=== PATIENT | female | born 1975 | race American Indian/Alaskan Native ===

== ENCOUNTER 2016-12-06 21:13 | Emergency (ER) | payer OTHER ==
[2016-12-06] MEDS ORDERED: DiphenhydrAMINE 50 mg/ml Inj IVP STA (23:00)
[2016-12-06 23:23] VITALS: TEMP 98.4
--- NOTE | 2016-12-06 23:23 | ED PDOC ---
Arrival/HPI - General Chief Complaint: Pain, Chronic Time Seen by Provider: 12/06/16 21:14 Historian: Patient - History of Present Illness Narrative History of Present Illness (Text): 12/06/16 22:55 41 year old female, whose past medical history includes lupus diagnosed in 2011 , complaining of lupus flare-up. Patient states she takes medication regularly for to control her lupus symptoms but still gets frequent flare-ups, for which she currently following-up with her help aid. Patient states when having a flare-up, she gets a burning/itching sensation to her arms and legs. Patient states her help aid puts her on prednisone and hydroxyzine, which she took tonight without relief. Patient denies any fever, chills, recent trauma/ injury, calf pain, recent travel, chest pain, shortness of breath, or any other complaints. PMD Leobardo Symptom Onset: Gradual Symptom Course: Unchanged Activities at Onset: Light Context: Home Past Medical History - Provider Review Nursing Documentation Reviewed: Yes - Psychiatric Hx Substance Use: No Family/Social History - Physician Review Nursing Documentation Reviewed: Yes Family/Social History: Unknown Family HX Smoking Status: no Hx Alcohol Use: No Hx Substance Use: No Allergies/Home Meds Allergies/Adverse Reactions: Allergies No Known Allergies Allergy (Verified 12/06/16 21:24) Home Medications: Home Meds Medication Instructions Recorded Confirmed Hydroxychloroquine Sulfate 400 mg PO DAILY 12/06/16 12/06/16 [Plaquenil] Prednisolone [Millipred] 5 mg PO 10 12/06/16 12/06/16 hydrALAZINE [hydralazine 25 mg PO DAILY 12/06/16 12/06/16 Hydrochloride] Review of Systems - Physician Review All systems were reviewed & negative as marked: Yes - Review of Systems Constitutional: Normal. absent: Fevers Eyes: Normal ENT: Normal Respiratory: Normal. absent: SOB, Cough Cardiovascular: Normal. absent: Chest Pain Gastrointestinal: Normal. absent: Diarrhea, Nausea, Vomiting Genitourinary Female: Normal. absent: Dysuria, Frequency, Hematuria, Urine Output Changes Musculoskeletal: Other (+burning/itching to arms/legs). absent: Back Pain, Neck Pain Skin: Normal. absent: Rash Neurological: Normal. absent: Headache, Dizziness Endocrine: Normal Hemo/Lymphatic: Normal Psychiatric: Normal Physical Exam Vital Signs Reviewed: Yes Vital Signs Temp Pulse Resp BP Pulse Ox 12/06/16 23:22 98.4 F 76 20 98/64 L 99 12/06/16 21:19 99.0 F 105 H 18 136/88 99 Temperature: Afebrile Blood Pressure: Normal Pulse: Regular Respiratory Rate: Normal Appearance: Positive for: Well-Appearing, Non-Toxic, Comfortable Pain Distress: Mild Mental Status: Positive for: Alert and Oriented X 3 - Systems Exam Head: Present: Atraumatic, Normocephalic Pupils: Present: PERRL Extroacular Muscles: Present: EOMI Conjunctiva: Present: Normal Mouth: Present: Moist Mucous Membranes Neck: Present: Normal Range of Motion Respiratory/Chest: Present: Clear to Auscultation, Good Air Exchange. No: Respiratory Distress, Accessory Muscle Use Cardiovascular: Present: Regular Rate and Rhythm, Normal S1, S2. No: Murmurs Abdomen: Present: Normal Bowel Sounds. No: Tenderness, Distention, Peritoneal Signs Back: Present: Normal Inspection Upper Extremity: Present: Normal Inspection. No: Cyanosis, Edema Lower Extremity: Present: Normal Inspection. No: Edema Neurological: Present: GCS=15, CN II-XII Intact, Speech Normal Skin: Present: Warm, Dry, Normal Color. No: Rashes Psychiatric: Present: Alert, Oriented x 3, Normal Insight, Normal Concentration Medical Decision Making ED Course and Treatment: 12/06/16 22:55 Impression: 41 year old female c/o lupus flare-up/burning sensation to arms and legs. Plan: -- Labs -- Solu-medrol -- Benadryl -- Reassess and disposition Progress Notes: Lab results reviewed and are wnl. On re-evaluation, pt reports improvement of symptoms. Has no additional complaints at this time. Denies calf pain/swelling, CP or SOB. Lab results d/w the pt in great detail. Advised to follow up with primary care physician in 1-2 days without fail. Advised to take medication as prescribed. Return to the emergency room at any time for any new or worsening symptoms. Patient states she fully agrees with and understands discharge instructions. States that she agrees with the plan and disposition. Verbalized and repeated discharge instructions and plan. I have given the patient opportunity to ask any additional questions. - Lab Interpretations Lab Results: 12/06/16 23:15 12/06/16 23:15 Lab Results 12/06/16 23:15: Sodium 138, Potassium 4.3, Chloride 104, Carbon Dioxide 24, Anion Gap 14, BUN 12, Creatinine 0.9, Est GFR ( Amer) > 60, Est GFR (Non- Af Amer) > 60, Random Glucose 99, Calcium 9.4, Total Bilirubin 1.0, AST 41 H, ALT 29, Alkaline Phosphatase 64, Total Creatine Kinase 197, Total Protein 8.3, Albumin 4.4, Globulin 3.8, Albumin/Globulin Ratio 1.2 12/06/16 23:15: WBC 8.5, RBC 4.65, Hgb 13.0, Hct 39.9, MCV 85.8, MCH 28.0, MCHC 32.6, RDW 13.9, Plt Count 271, MPV 11.0, Gran % 88.5 H, Lymph % (Auto) 8.2 L, Amador % (Auto) 3.1, Eos % (Auto) 0.1 L, Baso % (Auto) 0.1, Gran # 7.49 H, Lymph # 0.7 L, Amador # 0.3, Eos # 0.0, Baso # 0.01 I have reviewed the lab results: Yes Interpretation: All labs normal - Medication Orders Current Medication Orders: Discontinued Medications Diphenhydramine HCl (Benadryl) 25 mg IVP STAT STA Stop: 12/06/16 23:01 Last Admin: 12/06/16 23:47 Dose: 25 mg Methylprednisolone (Solu-Medrol) 125 mg IV STAT STA Stop: 12/06/16 23:01 Last Admin: 12/06/16 23:47 Dose: 125 mg - PA / OUTCOMES SPECIALIST / Resident Statement MD/DO has reviewed & agrees with the documentation as recorded. - Scribe Statement The provider has reviewed the documentation as recorded by the Scribkate Cristobal All medical record entries made by the Scribkate were at my direction and personally dictated by me. I have reviewed the chart and agree that the record accurately reflects my personal performance of the history, physical exam, medical decision making, and the department course for this patient. I have also personally directed, reviewed, and agree with the discharge instructions and disposition. Disposition/Present on Arrival - Present on Arrival Any Indicators Present on Arrival: No History of DVT/PE: No History of Uncontrolled Diabetes: No Urinary Catheter: No History of Decub. Ulcer: No History Surgical Site Infection Following: None - Disposition Have Diagnosis and Disposition been Completed?: Yes Diagnosis: Lupus Disposition: HOME/ ROUTINE Disposition Time: 23:45 Patient Plan: Discharge Condition: STABLE Discharge Instructions (ExitCare): Autoimmune Disease (ED) Print Language: YAKUT Additional Instructions: Thank you for letting us take care of you today. You were treated for lupus flare up. The emergency medical care you received today was directed at your acute symptoms. If you were prescribed any medication, please fill it and take as directed. It may take several days for your symptoms to resolve. Return to the Emergency Department if your symptoms worsen, do not improve, or if you have any other problems. Please contact your doctor in 2 days for re-evaluation and follow up Bring any paperwork you were given at discharge with you along with any medications you are taking to your follow up visit. Our treatment cannot replace ongoing medical care by a primary care provider (PCP) outside of the emergency department. Thank you for allowing the [facility] team to be part of your care today. Prescriptions: predniSONE [predniSONE Tab] 40 mg PO DAILY #8 tab Referrals: Davi Booth [Primary Care Provider] - Follow up with primary Forms: [employer] (Syriac), WORK NOTE
[2016-12-06 23:30] LABS: BASO # 0.01 K/mm3 (0.0-2.0); BASO % 0.1 % (0.0-3.0); EOS % 0.1 % (1.5-5.0); GRAN # 7.49 (1.4-6.5); GRAN % 88.5 % (50.0-68.0); HEMATOCRIT 39.9 % (36.0-48.0); LYMPH # 0.7 (1.2-3.4); LYMPH % 8.2 % (22.0-35.0); MEAN CELL VOLUME 85.8 fl (80.0-105.0); MEAN CORPUSCULAR HGB CONC 32.6 g/dl (31.0-37.0); MONO # 0.3 (0.1-0.6); MONO % 3.1 % (1.0-6.0); RED CELL DISTRIBUTION WIDTH 13.9 % (11.5-14.5); WHITE BLOOD COUNT 8.5 10^3/ul (4.5-11.0)
[2016-12-06 23:44] LABS: ALB/GLOB RATIO 1.2 (1.1-1.8); ALKALINE PHOSPHATASE 64 U/L (38-126); ALT/SGPT 29 U/L (7-56); AST/SGOT 41 U/L (14-36); BLOOD UREA NITROGEN 12 mg/dL (7-21); CALCIUM 9.4 mg/dL (8.4-10.5); CARBON DIOXIDE 24 mmol/L (21-33); CHLORIDE 104 mmol/L (98-107); GFR AFRICAN-AMERICAN > 60; GLUCOSE,RANDOM 99 mg/dL (70-110); POTASSIUM 4.3 mmol/L (3.6-5.0); SODIUM 138 mmol/L (132-148); TOTAL PROTEIN 8.3 g/dL (5.8-8.3)
[2016-12-07 00:21] VITALS: BP 116/67; PULSE 74; RESP 16; O2SAT 100
== END 2016-12-07 01:09 | disposition home or self-care (01) ==
LOC: ED 21:13
DX: M32.9 Systemic lupus erythematosus, unspecified (principal)
CPT/HCPCS: 80053; 82550; 85025; 96374; 99283; J1200; J2930

== ENCOUNTER 2016-12-24 19:48 | Observation (INO) | payer OTHER ==
[2016-12-24] MEDS ORDERED: DiphenhydrAMINE 50 mg/ml Inj IVP ONE ×3 (20:13→23:56)
--- NOTE | 2016-12-24 20:36 | ED PDOC ---
Arrival/HPI - General Chief Complaint: Pain, Chronic Time Seen by Provider: 12/24/16 20:00 Historian: Patient - History of Present Illness Narrative History of Present Illness (Text): 41 year old female, whose past medical history includes lupus diagnosed in 2011 , presents to the emergency department with complaints of a lupus flare-up. Patient reports she has a burning/itching sensation to her arms and legs, which is similar to past flare-up episodes. Patient reports taking prednisone without relief of her symptoms. Patient denies any fever, chills, recent trauma/injury, calf pain, recent travel, chest pain, shortness of breath, or any other complaints. PMD Leobardo Past Medical History - Provider Review Nursing Documentation Reviewed: Yes - Travel History Have you recently traveled outside [place] w/in the past 3 mons?: No - Endocrine/Metabolic Hx Systemic Lupus Erythematosus: Yes - Psychiatric Hx Substance Use: No Family/Social History - Physician Review Nursing Documentation Reviewed: Yes Family/Social History: No Known Family HX Smoking Status: Never Smoked Hx Alcohol Use: No Hx Substance Use: No Allergies/Home Meds Allergies/Adverse Reactions: Allergies No Known Allergies Allergy (Verified 12/06/16 21:24) Home Medications: Home Meds Medication Instructions Recorded Confirmed Hydroxychloroquine Sulfate 400 mg PO DAILY 12/06/16 12/24/16 [Plaquenil] Prednisolone [Millipred] 5 mg PO 10 12/06/16 12/24/16 hydrALAZINE [hydralazine 25 mg PO DAILY 12/06/16 12/24/16 Hydrochloride] predniSONE [predniSONE Tab] 40 mg PO PRN PRN 12/24/16 12/24/16 Review of Systems - Physician Review All systems were reviewed & negative as marked: Yes - Review of Systems Constitutional: absent: Fevers Respiratory: absent: SOB Cardiovascular: absent: Chest Pain Gastrointestinal: absent: Abdominal Pain Skin: Pruritis (burning and itching sensation to bilateral arms and legs. ) Neurological: absent: Headache Physical Exam Vital Signs Reviewed: Yes Vital Signs Temp Pulse Resp BP Pulse Ox 12/25/16 03:30 71 18 117/82 95 12/25/16 02:30 68 16 128/72 100 12/25/16 01:30 65 16 121/76 100 12/25/16 00:28 66 16 118/71 100 12/24/16 22:16 89 18 115/74 99 12/24/16 19:55 99.5 F 90 18 131/85 99 Appearance: Positive for: Comfortable Mental Status: Positive for: Alert and Oriented X 3 - Systems Exam Head: Present: Atraumatic Pupils: Present: PERRL Extroacular Muscles: Present: EOMI Neck: Present: Normal Range of Motion Respiratory/Chest: Present: Clear to Auscultation. No: Respiratory Distress Cardiovascular: Present: Regular Rate and Rhythm Upper Extremity: Present: Normal Inspection, NORMAL PULSES. No: Tenderness Lower Extremity: Present: Normal Inspection, NORMAL PULSES. No: Tenderness Neurological: Present: GCS=15, CN II-XII Intact Skin: Present: Warm, Dry, Normal Color. No: Rashes Psychiatric: Present: Alert, Oriented x 3 Medical Decision Making ED Course and Treatment: Impression: 41 yo female with complaints of burning and itching sensations to bilateral arms and legs. Differential Diagnosis included but are not limited to: Allergic reaction, lupus flare Plan: -- Labs -- Benadryl 25 mg IVP -- Solumedrol 125 mg IVP -- Reassess and disposition Prior Visits: Notes and results from previous visits were reviewed. Patient was seen in this facility on 12/06 for similar complaints and was discharged with prednisone and instructions to follow up with her PCP. - Lab Interpretations Lab Results: 12/24/16 10:25 Lab Results 12/24/16 10:25: Sodium 139, Potassium 4.2, Chloride 105, Carbon Dioxide 23, Anion Gap 15, BUN 21, Creatinine 0.9, Est GFR ( Amer) > 60, Est GFR (Non- Af Amer) > 60, Random Glucose 93, Calcium 9.5, Total Bilirubin 0.8, AST 21, ALT 22, Alkaline Phosphatase 72, Total Protein 7.8, Albumin 4.2, Globulin 3.6, Albumin/Globulin Ratio 1.2 I have reviewed the lab results: Yes - Medication Orders Current Medication Orders: Discontinued Medications Diphenhydramine HCl (Benadryl) 25 mg IVP ONCE ONE Stop: 12/24/16 20:14 Last Admin: 12/24/16 21:17 Dose: 25 mg IVP Administration Document 12/24/16 21:17 GMD (Rec: 12/24/16 21:18 GMD [id number]) Charges for Administration # of IVP Administrations 1 Diphenhydramine HCl (Benadryl) 25 mg IVP ONCE ONE Stop: 12/24/16 22:49 Last Admin: 12/24/16 22:56 Dose: 25 mg IVP Administration Document 12/24/16 22:56 YP (Rec: 12/24/16 22:56 YP [id number]) Charges for Administration # of IVP Administrations 1 Diphenhydramine HCl (Benadryl) 25 mg IVP ONCE ONE Stop: 12/24/16 23:57 Last Admin: 12/24/16 23:58 Dose: 25 mg IVP Administration Document 12/24/16 23:58 YP (Rec: 12/24/16 23:58 YP [place] [id number]) Charges for Administration # of IVP Administrations 1 Famotidine (Pepcid) 20 mg IVP STAT STA Stop: 12/25/16 03:05 Last Admin: 12/25/16 03:27 Dose: 20 mg IVP Administration Document 12/25/16 03:27 YP (Rec: 12/25/16 03:27 YP [id number]) Charges for Administration # of IVP Administrations 1 Ketorolac Tromethamine (Toradol) 30 mg IVP STAT STA Stop: 12/24/16 22:34 Last Admin: 12/24/16 22:40 Dose: 30 mg MAR Pain Assessment Document 12/24/16 22:40 YP (Rec: 12/24/16 22:40 YP [id number]) Pain Reassessment Is this a pain reassessment? Yes Sleep Is patient sleeping during reassessment? No Presence of Pain Presence of Pain Yes IVP Administration Document 12/24/16 22:40 YP (Rec: 12/24/16 22:40 YP [id number]) Charges for Administration # of IVP Administrations 1 Methylprednisolone (Solu-Medrol) 125 mg IVP ONCE ONE Stop: 12/24/16 20:14 Last Admin: 12/24/16 21:17 Dose: 125 mg IVP Administration Document 12/24/16 21:17 GMD (Rec: 12/24/16 21:17 GMD [id number]) Charges for Administration # of IVP Administrations 1 Morphine Sulfate (Morphine) 2 mg IVP STAT STA Stop: 12/25/16 01:12 Last Admin: 12/25/16 01:29 Dose: 2 mg MAR Pain Assessment Document 12/25/16 01:29 [facility] (Rec: 12/25/16 01:33 [facility] [id number]) Pain Reassessment Is this a pain reassessment? No Sleep Is patient sleeping during reassessment? No Presence of Pain Presence of Pain Yes Pain Scale Used Pain Scale Used Numeric Location Left, Right or Bilateral Bilateral Pain Location Body Site Leg Description Description Chronic Intensity of Pain at present 10 Acceptable Level of Pain 0 Pain Behavior Restlessness Aggravating Factors ADL's IVP Administration Document 12/25/16 01:29 [facility] (Rec: 12/25/16 01:33 [facility] [id number]) Charges for Administration # of IVP Administrations 1 ED OBSERVATION Date of observation admission: 12/24/16 Time of observation admission: 20:10 - Observation admission statement Patient is being placed in observation because:: treatment of lupus - Goals of Observation Goals of observation are:: alleviate symptoms - Progress Note Progress Note: 12/24/16 20:10 Pt presents for lupus flare-up, will observe in ER. 12/24/16 22:08 Pt still experiencing bilateral discomfort/pruritus, Toradol/Benadryl ordered. 12/25/16 00:09 Pt resting comfortably, no acute distress. 12/25/16 01:08 Pt complaining of burning sensation to bilateral legs, Morphine ordered. 12/25/16 03:08 Pt resting comfortably, no acute distress. 12/25/16 03:[address] Staley, electromedical equipment technician electronic security specialist, who is aware and agrees with plan. 12/25/16 03:[address] Yepez, who is aware and agrees with plan. Accepts pt in to hospitalist service. Pt [facility] go to [facility] for systemic lupus erythematosus. - Scribe Statement The provider has reviewed the documentation as recorded by the Regina Wakefield Provider Scribe Attestation: All medical record entries made by the Scribe were at my direction and personally dictated by me. I have reviewed the chart and agree that the record accurately reflects my personal performance of the history, physical exam, medical decision making, and the department course for this patient. I have also personally directed, reviewed, and agree with the discharge instructions and disposition. Disposition/Present on Arrival - Present on Arrival Any Indicators Present on Arrival: No History of DVT/PE: No History of Uncontrolled Diabetes: No Urinary Catheter: No History of Decub. Ulcer: No History Surgical Site Infection Following: None - Disposition Have Diagnosis and Disposition been Completed?: Yes Diagnosis: Exacerbation of systemic lupus erythematosus Disposition: HOSPITALIZED Disposition Time: 04:14 Patient Plan: Observation Condition: STABLE
[2016-12-24 21:08] LABS: HEMATOCRIT 38.5 % (36.0-48.0); MEAN CELL VOLUME 84.4 fl (80.0-105.0); MEAN CORPUSCULAR HEMOGLOBIN 27.9 pg (25.0-35.0); MEAN PLATELET VOLUME 10.6 fl (7.0-11.0); RED CELL DISTRIBUTION WIDTH 14.3 % (11.5-14.5)
[2016-12-24 22:51] LABS: ALB/GLOB RATIO 1.2 (1.1-1.8); ALKALINE PHOSPHATASE 72 U/L (38-126); ALT/SGPT 22 U/L (7-56); AST/SGOT 21 U/L (14-36); BILIRUBIN,TOTAL 0.8 mg/dL (0.2-1.3); BLOOD UREA NITROGEN 21 mg/dL (7-21); CALCIUM 9.5 mg/dL (8.4-10.5); CARBON DIOXIDE 23 mmol/L (21-33); CHLORIDE 105 mmol/L (98-107); GFR AFRICAN-AMERICAN > 60; GLUCOSE,RANDOM 93 mg/dL (70-110); POTASSIUM 4.2 mmol/L (3.6-5.0); SODIUM 139 mmol/L (132-148); TOTAL PROTEIN 7.8 g/dL (5.8-8.3)
[2016-12-25] MEDS ORDERED: Morphine 2 mg/ml ISec IVP STA (01:11)
[2016-12-25] MEDS ORDERED: DiphenhydrAMINE 50 mg/ml Inj IVP STA (04:29)
[2016-12-25] MEDS ORDERED: Sodium Chloride 0.9% 1,000 ML IV SCH (04:30)
[2016-12-25 05:05] LABS: URINE BILIRUBIN NEGATIVE (NEGATIVE); URINE BLOOD NEGATIVE (NEGATIVE); URINE GLUCOSE (UA) NEGATIVE (NEGATIVE); URINE KETONE NEGATIVE (NEGATIVE); URINE LEUKOCYTE ESTERASE NEGATIVE Leu/uL (NEGATIVE); URINE PROTEIN NEGATIVE mg/dL (<30 mg/dL); URINE UROBILINOGEN 0.2 E.U./dL (<1 E.U./dL)
[2016-12-25 05:17] LABS: URINE APPEARANCE CLEAR (CLEAR); URINE COLOR YELLOW (YELLOW)
[2016-12-25 05:27] LABS: ALB/GLOB RATIO 1.2 (1.1-1.8); ALKALINE PHOSPHATASE 63 U/L (38-126); ALT/SGPT 27 U/L (7-56); AST/SGOT 23 U/L (14-36); BILIRUBIN,TOTAL 0.8 mg/dL (0.2-1.3); BLOOD UREA NITROGEN 19 mg/dL (7-21); CALCIUM 9.6 mg/dL (8.4-10.5); CARBON DIOXIDE 23 mmol/L (21-33); CHLORIDE 105 mmol/L (98-107); GFR AFRICAN-AMERICAN > 60; GLUCOSE,RANDOM 128 mg/dL (70-110); MAGNESIUM 1.9 mg/dL (1.7-2.2); PHOSPHOROUS 4.4 mg/dL (2.5-4.5); POTASSIUM 4.3 mmol/L (3.6-5.0); SODIUM 138 mmol/L (132-148); TOTAL PROTEIN 7.8 g/dL (5.8-8.3)
[2016-12-25 05:48] VITALS: O2SAT 100
[2016-12-25] MEDS ORDERED: Pantoprazole 40 mg EC Tab PO SCH (06:00)
--- NOTE | 2016-12-25 06:08 | CP.PCM.HP ---
<Lc Mitchell - Last Filed: 12/25/16 09:11> History of Present Illness - History of Present Illness History of Present Illness: CC: Patient complains of pruritic B/L lower extremities HPI: Patient is a 41 year old black female with a history of SLE and HTN. Prior to this admission, patient presented to the ED on 12/06/16 with similar complaints of both lower extremities being pruritic. Patient was given solumedrol and benadryl which relieved symptoms. Patient presents to [facility] ED 12/24 with complaints of both her lower extremities being pruritic and despite being administered solumedrol and benadryl, the pruritus did not resolve. Patient states that she was first diagnosed with SLE in 2011. Since then she has been under the care of her Government Gauger Dr. Stephenson at [facility] [place]. Patient was diagnosed on the basis of a lupus flare in which her pruritus was accompanied by a malar rash. Since her first flare, patient states she has not experienced a malar rash. Her initial medication regimen which consisted of hydroxychloroquine, steroids, hydroxyzine worked well for patient. Due to negative effects of steroid usage, patient was tapered off. Patient also states her post commander began switching around her medications which made her flares re-appear. Patient states that her flares usually appear with hives on legs, sometimes arms chest and face and begin as a slight tingling in her hands in the carpal area which then extend to the legs and arms. She states that the sensation she gets is a combination of itchiness, and tingling which is relieved at times with a brush, standing in front of an AC, taking ice cold showers, performing squats to stretch her skin, kicking her legs in and out, or taking hydroxyine. Patient admits to raynaud's phenomenon Patient denies fatigue , fever, malaise, weight loss, joint stiffness/tenderness/swelling/pain. Patient states her post commander suspects flares are due to intense exercise and stress in her daily life. PMD: Dr. Kincaid Government Gauger: Dr. Ely Greco Allergies: NKDA FHx: Mother: SLE SHx: None Present on Admission - Present on Admission Any Indicators Present on Admission: No Review of Systems - Review of Systems Systems not reviewed;Unavailable: Acuity of Condition - Constitutional Constitutional: absent: Fever, Lethargy, Malaise, Weight Loss - EENT Eyes: Photophobia (wears sunglasses). absent: Blurred Vision, Change in Vision Nose/Mouth/Throat: Other (No complaints of ulcers) - Cardiovascular Cardiovascular: absent: Chest Pain, Dyspnea - Respiratory Respiratory: absent: Dyspnea, Dyspnea on Exertion, Wheezing, Pain on Inspiration - Gastrointestinal Gastrointestinal: absent: Abdominal Pain, Diarrhea, Dysphagia, Nausea, Vomiting - Genitourinary Genitourinary: absent: Dysuria, Flank Pain, Hematuria - Musculoskeletal Musculoskeletal: Tingling. absent: Arthralgias, Joint Swelling, Myalgias, Stiffness - Neurological Neurological: absent: Abnormal Hearing, Behavioral Changes, Dizziness, Loss of Vision - Psychiatric Psychiatric: absent: Hallucinations Past Patient History - Past Social History Smoking Status: Never Smoked - ENDOCRINE/METABOLIC Hx Systemic Lupus Erythematosus: Yes - PSYCHIATRIC Hx Substance Use: No Meds Allergies/Adverse Reactions: Allergies Allergy/AdvReac Type Severity Reaction Status Date / Time No Known Allergies Allergy Verified 12/06/16 21:24 Physical Exam - Head Exam Head Exam: ATRAUMATIC, NORMOCEPHALIC. absent: NORMAL INSPECTION (alopecia) - ENT Exam ENT Exam: Mucous Membranes Moist, Normal Exam - Neck Exam Neck exam: Positive for: Normal Inspection - Respiratory Exam Respiratory Exam: Clear to Auscultation Bilateral, NORMAL BREATHING PATTERN - Cardiovascular Exam Cardiovascular Exam: REGULAR RHYTHM, +S1, +S2 - GI/Abdominal Exam GI & Abdominal Exam: Normal Bowel Sounds, Soft Additional comments: no splenomegaly - Neurological Exam Neurological exam: Alert, CN II-XII Intact, Oriented x3 - Skin Skin Exam: Normal Color, Rash (nose sparing nasolabial ) Results - Vital Signs Recent Vital Signs: Last Vital Signs Temp 99.5 F 12/24/16 19:55 Pulse 71 12/25/16 03:30 Resp 18 12/25/16 03:30 BP 117/82 12/25/16 03:30 Pulse Ox 95 12/25/16 03:30 - Labs Result Diagrams: 12/24/16 20:13 12/25/16 04:50 Labs: Laboratory Results - last 24 hr 12/24/16 12/24/16 12/25/16 20:13 22:25 04:10 WBC 5.0 D RBC 4.56 Hgb 12.7 Hct 38.5 MCV 84.4 MCH 27.9 MCHC 33.0 RDW 14.3 Plt Count 254 MPV 10.6 Sodium 139 Potassium 4.2 Chloride 105 Carbon Dioxide 23 Anion Gap 15 BUN 21 Creatinine 0.9 Est GFR ( Amer) > 60 Est GFR (Non-Af Amer) > 60 Random Glucose 93 Calcium 9.5 Phosphorus Magnesium Total Bilirubin 0.8 AST 21 ALT 22 Alkaline Phosphatase 72 Total Protein 7.8 Albumin 4.2 Globulin 3.6 Albumin/Globulin Ratio 1.2 Urine Color Yellow Urine Appearance Clear Urine pH 6.0 Ur Specific [place] 1.025 Urine Protein Negative Urine Glucose (UA) Negative Urine Ketones Negative Urine Blood Negative Urine Nitrate Negative Urine Bilirubin Negative Urine Urobilinogen 0.2 Ur Leukocyte Esterase Negative 12/25/16 04:50 WBC RBC Hgb Hct MCV MCH MCHC RDW Plt Count MPV Sodium 138 Potassium 4.3 Chloride 105 Carbon Dioxide 23 Anion Gap 14 BUN 19 Creatinine 0.9 Est GFR ( Amer) > 60 Est GFR (Non-Af Amer) > 60 Random Glucose 128 H Calcium 9.6 Phosphorus 4.4 Magnesium 1.9 Total Bilirubin 0.8 AST 23 ALT 27 Alkaline Phosphatase 63 Total Protein 7.8 Albumin 4.3 Globulin 3.5 Albumin/Globulin Ratio 1.2 Urine Color Urine Appearance Urine pH Ur Specific [place] Urine Protein Urine Glucose (UA) Urine Ketones Urine Blood Urine Nitrate Urine Bilirubin Urine Urobilinogen Ur Leukocyte Esterase Assessment & Plan - Assessment and Plan (Free Text) Assessment: Assessment 41 year old female presenting with pruritus in lower extremities Plan: Plan - Prednisone 10 mg - Benadryl 25 mg q4 - Hydroxyzine 25 mg <Marleni VARMA,Josef - Last Filed: 12/25/16 09:33> Results - Vital Signs Recent Vital Signs: Last Vital Signs Temp 99.5 F 12/24/16 19:55 Pulse 63 12/25/16 05:30 Resp 16 12/25/16 05:30 BP 119/74 12/25/16 05:30 Pulse Ox 100 12/25/16 05:30 - Labs Result Diagrams: 12/24/16 20:13 12/25/16 04:50 Labs: Laboratory Results - last 24 hr 12/24/16 12/24/16 12/25/16 20:13 22:25 04:10 WBC 5.0 D RBC 4.56 Hgb 12.7 Hct 38.5 MCV 84.4 MCH 27.9 MCHC 33.0 RDW 14.3 Plt Count 254 MPV 10.6 ESR Sodium 139 Potassium 4.2 Chloride 105 Carbon Dioxide 23 Anion Gap 15 BUN 21 Creatinine 0.9 Est GFR ( Amer) > 60 Est GFR (Non-Af Amer) > 60 Random Glucose 93 Calcium 9.5 Phosphorus Magnesium Total Bilirubin 0.8 AST 21 ALT 22 Alkaline Phosphatase 72 Total Protein 7.8 Albumin 4.2 Globulin 3.6 Albumin/Globulin Ratio 1.2 Urine Color Yellow Urine Appearance Clear Urine pH 6.0 Ur Specific [place] 1.025 Urine Protein Negative Urine Glucose (UA) Negative Urine Ketones Negative Urine Blood Negative Urine Nitrate Negative Urine Bilirubin Negative Urine Urobilinogen 0.2 Ur Leukocyte Esterase Negative XIN, Poly Interpret 12/25/16 12/25/16 12/25/16 04:50 04:50 07:10 WBC RBC Hgb Hct MCV MCH MCHC RDW Plt Count MPV ESR 10 Sodium 138 Potassium 4.3 Chloride 105 Carbon Dioxide 23 Anion Gap 14 BUN 19 Creatinine 0.9 Est GFR ( Amer) > 60 Est GFR (Non-Af Amer) > 60 Random Glucose 128 H Calcium 9.6 Phosphorus 4.4 Magnesium 1.9 Total Bilirubin 0.8 AST 23 ALT 27 Alkaline Phosphatase 63 Total Protein 7.8 Albumin 4.3 Globulin 3.5 Albumin/Globulin Ratio 1.2 Urine Color Urine Appearance Urine pH Ur Specific [place] Urine Protein Urine Glucose (UA) Urine Ketones Urine Blood Urine Nitrate Urine Bilirubin Urine Urobilinogen Ur Leukocyte Esterase XIN, Poly Interpret Negative Attending/Attestation - Attestation I have personally seen and examined this patient.: Yes I have fully participated in the care of the patient.: Yes I have reviewed all pertinent clinical information: Yes Notes (Text): -I agree with the above H&P completed by the resident physician with the following additions and/or changes: The patient is a 41 year old woman with a history of SLE (diagnosed in 2011) and HTN, who presents with recurring bilateral lower extremity pruritus and tingling. She denies any rashes, recent travel, fevers, chills, night sweats, joint swelling or pain, or history of bed bugs. We will check Anti-DS-DNA, C3,C4 , UA, ESR and CRP. Will use IV Benadryl for pruritus. Will increase pt's dose of Prednisone (from current home dose).
[2016-12-25] MEDS ORDERED: DiphenhydrAMINE 50 mg/ml Inj IVP PRN (07:45)
--- NOTE | 2016-12-25 07:59 | RAD ---
HISTORY: lupus flare COMPARISON: No prior. TECHNIQUE: Chest PA and lateral FINDINGS: LUNGS: No active pulmonary disease. PLEURA: No significant pleural effusion identified. No pneumothorax apparent. CARDIOVASCULAR: Normal. OSSEOUS STRUCTURES: No significant abnormalities. VISUALIZED UPPER ABDOMEN: Normal. OTHER FINDINGS: None. IMPRESSION: No acute cardiopulmonary disease appreciated.
[2016-12-25 09:57] VITALS: BP 109/59; PULSE 65; RESP 18; TEMP 97.9
[2016-12-25] MEDS ORDERED: Pneumococcal 23-Valent Vaccine IM ONE (09:58)
--- NOTE | 2016-12-25 12:21 | CARD ---
APPROVED REPORT EKG Measurement Heart [id number] ID [id number] <Conclusion> Normal sinus rhythm Normal ECG
--- NOTE | 2016-12-25 14:13 | CP.PCM.DIS ---
<Bronson Romano - Last Filed: 12/25/16 17:34> Provider - Provider Date of Admission: 12/24/16 20:10 Attending physician: Jett Ramirez MD Primary care physician: Kalpesh Time Spent in preparation of Discharge (in minutes): 45 Hospital Course - Lab Results Lab Results: Most Recent Lab Values WBC 5.0 10^3/ul (4.5-11.0) D 12/24/16 20:13 RBC 4.56 10^6/uL (3.5-6.1) 12/24/16 20:13 Hgb 12.7 g/dL (12.0-16.0) 12/24/16 20:13 Hct 38.5 % (36.0-48.0) 12/24/16 20:13 MCV 84.4 fl (80.0-105.0) 12/24/16 20:13 MCH 27.9 pg (25.0-35.0) 12/24/16 20:13 MCHC 33.0 g/dl (31.0-37.0) 12/24/16 20:13 RDW 14.3 % (11.5-14.5) 12/24/16 20:13 Plt Count 254 10^3/uL (120.0-450.0) 12/24/16 20:13 MPV 10.6 fl (7.0-11.0) 12/24/16 20:13 ESR 10 mm/hr (0.0-20.0) 12/25/16 04:50 Sodium 138 mmol/L (132-148) 12/25/16 04:50 Potassium 4.3 mmol/L (3.6-5.0) 12/25/16 04:50 Chloride 105 mmol/L (98-107) 12/25/16 04:50 Carbon Dioxide 23 mmol/L (21-33) 12/25/16 04:50 Anion Gap 14 (10-20) 12/25/16 04:50 BUN 19 mg/dL (7-21) 12/25/16 04:50 Creatinine 0.9 mg/dL (0.5-1.4) 12/25/16 04:50 Est GFR ( Amer) > 60 12/25/16 04:50 Est GFR (Non-Af Amer) > 60 12/25/16 04:50 Random Glucose 128 mg/dL (70-110) H 12/25/16 04:50 Calcium 9.6 mg/dL (8.4-10.5) 12/25/16 04:50 Phosphorus 4.4 mg/dL (2.5-4.5) 12/25/16 04:50 Magnesium 1.9 mg/dL (1.7-2.2) 12/25/16 04:50 Total Bilirubin 0.8 mg/dL (0.2-1.3) 12/25/16 04:50 AST 23 U/L (14-36) 12/25/16 04:50 ALT 27 U/L (7-56) 12/25/16 04:50 Alkaline Phosphatase 63 U/L (38-126) 12/25/16 04:50 C-React Prot High Sens 0.93 mg/L (1.00-3.00) L 12/25/16 04:50 Total Protein 7.8 g/dL (5.8-8.3) 12/25/16 04:50 Albumin 4.3 g/dL (3.0-4.8) 12/25/16 04:50 Globulin 3.5 gm/dL 12/25/16 04:50 Albumin/Globulin Ratio 1.2 (1.1-1.8) 12/25/16 04:50 25-OH Vitamin D Total 36.7 NG/ML (30.0-100.0) 12/25/16 06:15 Urine Color Yellow (YELLOW) 12/25/16 04:10 Urine Appearance Clear (CLEAR) 12/25/16 04:10 Urine pH 6.0 (4.7-8.0) 12/25/16 04:10 Ur Specific [place] 1.025 (1.005-1.035) 12/25/16 04:10 Urine Protein Negative mg/dL (<30 mg/dL) 12/25/16 04:10 Urine Glucose (UA) Negative mg/dL (NEGATIVE) 12/25/16 04:10 Urine Ketones Negative mg/dL (NEGATIVE) 12/25/16 04:10 Urine Blood Negative (NEGATIVE) 12/25/16 04:10 Urine Nitrate Negative (NEGATIVE) 12/25/16 04:10 Urine Bilirubin Negative (NEGATIVE) 12/25/16 04:10 Urine Urobilinogen 0.2 E.U./dL (<1 E.U./dL) 12/25/16 04:10 Ur Leukocyte Esterase Negative Fernanda/uL (NEGATIVE) 12/25/16 04:10 Complement C3 96.0 mg/dL (88.0-165.0) 12/25/16 04:50 Complement C4 34.2 mg/dL (14.0-44.0) 12/25/16 04:50 XIN, Poly Interpret Negative (NEGATIVE) 12/25/16 07:10 - Hospital Course Hospital Course: Upon Admission: 41yo F with PMHx of SLE here for evaluation of bilateral lower extremity pruritis. Patient states that she has had similar symptoms in the past. She was given Benadryl in the ED. She states that this is an atypical manifestation of her SLE and she has been following up with her management assistant Dr. Seema Graves at [facility] [place]. She states that she last saw him about 3 months ago and has her next appointment with him on 2016. We have sent SLE panel blood work. We discussed the case with the patient's Toll Relief Operator, Dr. Graves, who agreed with discharge and close follow up. He recommended discharging patient home on Prednisone 20mg x5 days, 10mg x5 days, and 5mg x5 days. Discussed plan and management with the patient in detail. All questions and concerns were addressed. Patient understands and agrees with plan. She states that her pruritis has improved mildly. She will follow up with her PMD and her Toll Relief Operator as out-patient. 1. Atypical SLE flare. Prescribed Hydroxizine and Prednisone. Continue home meds Upon Discharge: Patient is cleared for discharge as per Dr. Ramirez. 1. Follow up with your Primary Care Physician within 1 week 2. Follow up with your Toll Relief Operator on January 04. 3. Use new medications as prescribed. (Prescriptions sent electronically to [facility]) 4. Return to the ER with any concerning symptoms New Prescriptions: 1. Hydroxyzine 25mg PO q6h prn 2. Prednisone 20mg PO Daily x 5 days, 10mg PO Daily x5 days, 5mg PO Daily x5 days Discharge Exam - Head Exam Head Exam: ATRAUMATIC, NORMAL INSPECTION, NORMOCEPHALIC - Eye Exam Eye Exam: EOMI, Normal appearance - ENT Exam ENT Exam: Mucous Membranes Moist - Respiratory Exam Respiratory Exam: Clear to PA & Lateral, UNREMARKABLE. absent: Wheezes, Respiratory Distress - Cardiovascular Exam Cardiovascular Exam: RRR, +S1, +S2. absent: JVD - GI/Abdominal Exam GI & Abdominal Exam: Soft. absent: Distended, Firm, Guarding, Rebound, Rigid, Tenderness - Extremities Exam Extremities exam: normal inspection - Back Exam Back exam: NORMAL INSPECTION - Neurological Exam Neurological exam: Alert, Normal Gait, Oriented x3 - Psychiatric Exam Psychiatric exam: Normal Affect, Normal Mood - Skin Skin Exam: Dry, Intact, Normal Color, Warm Discharge Plan - Discharge Medications Prescriptions: Hydroxyzine HCl 25 mg PO Q6 #30 tablet Prednisone [Garo] See Taper PO DAILY #35 tablet.dr - Follow Up Plan Condition: STABLE Disposition: HOME/ ROUTINE Instructions: Pneumococcal Vaccine for Adults (GEN), Heart Healthy Diet (DC), Lupus Erythematosus (DC) Additional Instructions: Patient is cleared for discharge as per Dr. Ramirez. 1. Follow up with your Primary Care Physician within 1 week 2. Follow up with your Toll Relief Operator on January 04. 3. Use new medications as prescribed. (Pres[facility]) 4. Return to the ER with any concerning symptoms New Prescriptions: 1. Hydroxyzine 25mg PO q6h prn 2. Prednisone 20mg PO Daily x 5 days, 10mg PO Daily x5 days, 5mg PO Daily x5 days <Jett Ramirez - Last Filed: 12/25/16 18:08> Provider - Provider Date of Admission: 12/24/16 20:10 Attending physician: Jett Ramirez MD Hospital Course - Lab Results Lab Results: Most Recent Lab Values WBC 5.0 10^3/ul (4.5-11.0) D 12/24/16 20:13 RBC 4.56 10^6/uL (3.5-6.1) 12/24/16 20:13 Hgb 12.7 g/dL (12.0-16.0) 12/24/16 20:13 Hct 38.5 % (36.0-48.0) 12/24/16 20:13 MCV 84.4 fl (80.0-105.0) 12/24/16 20:13 MCH 27.9 pg (25.0-35.0) 12/24/16 20:13 MCHC 33.0 g/dl (31.0-37.0) 12/24/16 20:13 RDW 14.3 % (11.5-14.5) 12/24/16 20:13 Plt Count 254 10^3/uL (120.0-450.0) 12/24/16 20:13 MPV 10.6 fl (7.0-11.0) 12/24/16 20:13 ESR 10 mm/hr (0.0-20.0) 12/25/16 04:50 Sodium 138 mmol/L (132-148) 12/25/16 04:50 Potassium 4.3 mmol/L (3.6-5.0) 12/25/16 04:50 Chloride 105 mmol/L (98-107) 12/25/16 04:50 Carbon Dioxide 23 mmol/L (21-33) 12/25/16 04:50 Anion Gap 14 (10-20) 12/25/16 04:50 BUN 19 mg/dL (7-21) 12/25/16 04:50 Creatinine 0.9 mg/dL (0.5-1.4) 12/25/16 04:50 Est GFR ( Amer) > 60 12/25/16 04:50 Est GFR (Non-Af Amer) > 60 12/25/16 04:50 Random Glucose 128 mg/dL (70-110) H 12/25/16 04:50 Calcium 9.6 mg/dL (8.4-10.5) 12/25/16 04:50 Phosphorus 4.4 mg/dL (2.5-4.5) 12/25/16 04:50 Magnesium 1.9 mg/dL (1.7-2.2) 12/25/16 04:50 Total Bilirubin 0.8 mg/dL (0.2-1.3) 12/25/16 04:50 AST 23 U/L (14-36) 12/25/16 04:50 ALT 27 U/L (7-56) 12/25/16 04:50 Alkaline Phosphatase 63 U/L (38-126) 12/25/16 04:50 C-React Prot High Sens 0.93 mg/L (1.00-3.00) L 12/25/16 04:50 Total Protein 7.8 g/dL (5.8-8.3) 12/25/16 04:50 Albumin 4.3 g/dL (3.0-4.8) 12/25/16 04:50 Globulin 3.5 gm/dL 12/25/16 04:50 Albumin/Globulin Ratio 1.2 (1.1-1.8) 12/25/16 04:50 25-OH Vitamin D Total 36.7 NG/ML (30.0-100.0) 12/25/16 06:15 Urine Color Yellow (YELLOW) 12/25/16 04:10 Urine Appearance Clear (CLEAR) 12/25/16 04:10 Urine pH 6.0 (4.7-8.0) 12/25/16 04:10 Ur Specific [place] 1.025 (1.005-1.035) 12/25/16 04:10 Urine Protein Negative mg/dL (<30 mg/dL) 12/25/16 04:10 Urine Glucose (UA) Negative mg/dL (NEGATIVE) 12/25/16 04:10 Urine Ketones Negative mg/dL (NEGATIVE) 12/25/16 04:10 Urine Blood Negative (NEGATIVE) 12/25/16 04:10 Urine Nitrate Negative (NEGATIVE) 12/25/16 04:10 Urine Bilirubin Negative (NEGATIVE) 12/25/16 04:10 Urine Urobilinogen 0.2 E.U./dL (<1 E.U./dL) 12/25/16 04:10 Ur Leukocyte Esterase Negative Fernanda/uL (NEGATIVE) 12/25/16 04:10 Complement C3 96.0 mg/dL (88.0-165.0) 12/25/16 04:50 Complement C4 34.2 mg/dL (14.0-44.0) 12/25/16 04:50 XIN, Poly Interpret Negative (NEGATIVE) 12/25/16 07:10 Attending/Attestation - Attestation I have personally seen and examined this patient.: Yes I have fully participated in the care of the patient.: Yes I have reviewed all pertinent clinical information, including history, physical exam and plan: Yes Notes (Text): 12/25/16 18:06 41 year old female with past medical history of SLE who presented this morning with complaint of pruritis. She states this is consistent when she has SLE flare ups. Her prednisone dose was increased. Case was discussed with her management assistant who suggested to discharge on steroids taper. Patient is discharged home to follow up with her pmd. Follow up with management assistant. Jett Ramirez MD Hospitalist.
[2016-12-26 19:44] LABS: Interpretation Negative (Negative); RNP <1.0 AI (<1.0); RNP Interpretation Negative (Negative)
== END 2016-12-25 15:58 | disposition home or self-care (01) ==
LOC: ED 19:48 → EROBSV 20:10 → ERH 12-25 04:29 → 5RNO 12-25 06:21
PROVIDERS: ADMIT Internal Medicine; ATTEND Internal Medicine
DX: M32.9 Systemic lupus erythematosus, unspecified (principal); I10 Essential (primary) hypertension; I73.00 Raynaud's syndrome without gangrene; L29.9 Pruritus, unspecified
CPT/HCPCS: 71020; 80053; 81003; 82306; 83735; 84100; 85027; 85651; 86039; 86140; 86160; 86225; 86235; 86880; 93005; 96374; 96375; 96376; 99285; G0378; J1200; J1885; J2270; J2930; J7040

== ENCOUNTER 2018-01-11 10:16 | Observation (INO) | payer OTHER ==
[2018-01-11 10:20] VITALS: BMI 25.7
--- NOTE | 2018-01-11 12:13 | ED PDOC ---
Arrival/HPI - General Historian: Patient - History of Present Illness Narrative History of Present Illness (Text): 01/11/18 11:53 Patient is a 42 year old female with a past medical history of lupus (non- compliant, no meds for 11 months) presenting for lightheadedness and dyspnea on exertion. Patient started experiencing left arm heaviness 4 days ago with numbness/tingling in her finger tips. Today when she stood up, she got extremely lightheaded and felt like she was going to pass out. She denies syncope. She reported dysnpea on exertion that started today. She becomes short of breath with even very short distances like walking down the stairs to open door for EMS. She normally can walk far distances without difficulty and not become short of breath. This has never happened to the patient before. Denies fevers, chills, nausea, vomiting, diarrhea, constipation, chest pain, abdominal pain, headache, recent travel or hx of blood clots. Time/Duration: 4-6 hours Symptom Onset: Sudden Symptom Course: Intermittent Context: Walking <Cal Person - Last Filed: 01/11/18 15:09> <Abdirahman Lombardo - Last Filed: 01/11/18 15:45> - General Chief Complaint: Dizziness/Lightheaded Time Seen by Provider: 01/11/18 11:32 Past Medical History - Provider Review Nursing Documentation Reviewed: Yes - Infectious Disease Hx of Infectious Diseases: None - Cardiac Hx Hypertension: Yes - Pulmonary Hx Respiratory Disorders: No - Neurological Hx Neurological Disorder: No - HEENT Hx HEENT Disorder: No - Renal Hx Renal Disorder: No - Endocrine/Metabolic Hx Systemic Lupus Erythematosus: Yes - Hematological/Oncological Hx Anemia: Yes - Integumentary Hx Dermatological Disorder: No - Musculoskeletal/Rheumatological Hx Musculoskeletal Disorders: No Hx Falls: No - Gastrointestinal Hx Gastrointestinal Disorders: No - Genitourinary/Gynecological Hx Genitourinary Disorders: No - Psychiatric Hx Psychophysiologic Disorder: No Hx Substance Use: No <Cal Person - Last Filed: 01/11/18 15:09> Family/Social History - Physician Review Nursing Documentation Reviewed: Yes Family/Social History: Other (lupus - mother) Smoking Status: Never Smoked Hx Alcohol Use: No Hx Substance Use: No <Cal Person - Last Filed: 01/11/18 15:09> Allergies/Home Meds <Cal Person - Last Filed: 01/11/18 15:09> <Abdirahman Lombardo - Last Filed: 01/11/18 15:45> Allergies/Adverse Reactions: Allergies No Known Allergies Allergy (Verified 12/06/16 21:24) Home Medications: Home Meds Medication Instructions Recorded Confirmed Hydroxychloroquine Sulfate 400 mg PO DAILY 12/06/16 12/24/16 [Plaquenil] Prednisolone [Millipred] 5 mg PO 10 12/06/16 12/24/16 predniSONE [predniSONE Tab] 40 mg PO PRN PRN 12/24/16 12/24/16 Mycophenolate Mofetil [Cellcept] 1,000 mg PO DAILY 12/25/16 12/25/16 Review of Systems - Physician Review All systems were reviewed & negative as marked: Yes - Review of Systems Constitutional: Normal. absent: Fatigue, Weight Change, Fevers Eyes: Normal. absent: Vision Changes ENT: Normal. absent: Sore Throat, Rhinorrhea Respiratory: SOB. absent: Cough, Sputum, Wheezing Cardiovascular: MARIN, Other (lightheadedness (pre-syncope)). absent: Chest Pain, Palpitations, Edema, Calf Pain, Orthopnea, Syncope Gastrointestinal: Normal. absent: Abdominal Pain, Constipation, Diarrhea, Nausea, Vomiting, Hematochezia Musculoskeletal: Other (left arm heaviness). absent: Back Pain Skin: Normal. absent: Rash, Skin Lesions Neurological: Normal. absent: Headache, Dizziness, Focal Weakness Endocrine: Normal. absent: Diaphoresis Hemo/Lymphatic: Normal. absent: Adenopathy Psychiatric: Normal. absent: Anxiety <Cal Person - Last Filed: 01/11/18 15:09> Physical Exam Vital Signs Reviewed: Yes Vital Signs Temp Pulse Resp BP Pulse Ox 01/11/18 10:34 98.3 F 78 18 159/73 H 98 Temperature: Afebrile Blood Pressure: Hypertensive Pulse: Regular Respiratory Rate: Normal Appearance: Positive for: Well-Appearing, Non-Toxic, Comfortable Pain Distress: None Mental Status: Positive for: Alert and Oriented X 3 - Systems Exam Head: Present: Atraumatic, Normocephalic Pupils: Present: PERRL Extroacular Muscles: Present: EOMI Conjunctiva: Present: Normal Mouth: Present: Moist Mucous Membranes Nose (External): Present: Atraumatic Nose (Internal): Present: No Active Bleeding, Moist Neck: Present: Normal Range of Motion. No: Meningeal Signs Respiratory/Chest: Present: Clear to Auscultation, Good Air Exchange. No: Respiratory Distress, Accessory Muscle Use, Wheezes, Rales, Rhonchi, Tachypneic, Tender to Palpation Cardiovascular: Present: Regular Rate and Rhythm, Normal S1, S2. No: Murmurs Abdomen: No: Tenderness, Distention, Peritoneal Signs Upper Extremity: Present: Normal Inspection, NORMAL PULSES. No: Cyanosis, Edema Lower Extremity: Present: Normal Inspection, NORMAL PULSES. No: Edema, CALF TENDERNESS Neurological: Present: GCS=15, CN II-XII Intact, Speech Normal Skin: Present: Warm, Dry, Normal Color. No: Rashes Psychiatric: Present: Alert, Oriented x 3, Normal Insight, Normal Concentration <Cal Person - Last Filed: 01/11/18 15:09> Vital Signs Temp Pulse Resp BP Pulse Ox 01/11/18 12:17 76 18 142/76 98 01/11/18 10:34 98.3 F 78 18 159/73 H 98 <Abdirahman Lombardo - Last Filed: 01/11/18 15:45> Medical Decision Making ED Course and Treatment: 01/11/18 12:17 Patient is a 42 year old female with a past medical history of lupus presenting with lightheadedness, dyspnea on exertion and left shoulder heaviness. Patient has been non-compliant on her lupus medications and has not taken anything in 11 months. Patient walked to the bathroom and needed assistance due to fear of passing out. Patient reported shortness of breath after walking approximately 10 steps. Labs, EKG and Chest CTA (PE protocol) 01/11/18 13:46 Labs show elevated CPK - likely secondary to lupus flare as patient is noncompliant on no medication. waiting on Chest CTA Patient given 1 liter bolus of fluids. 01/11/18 15:09 Chest CTA - Unremarkable CT pulmonary angiogram. No pulmonary embolus. Patient reports resolution of her shoulder heaviness but is still lightheaded. Call placed and case discussed in detail with Dr. Pepito Mayo (Hospitalist), who has accepted patient to be admitted under the hospitalist service for observation. Re-evaluation Time: 15:05 - Lab Interpretations I have reviewed the lab results: Yes - RAD Interpretation Narrative RAD Interpretations (Text): 01/11/18 14:47 CTA - Unremarkable CT pulmonary angiogram. No pulmonary embolus. Radiology Orders: 01/11/18 11:51 ANGIO CHEST PE PROTOCOL [CT] Stat Career Services Director: Radiologist - EKG Interpretation EKG Interpretation (Text): 01/11/18 14:10 NSR @68bpm, normal axis, poor R wave progression, no acute ST segment elevations or depressions - similar to Dec 25, 2016 Interpreted by ED Physician: Yes Type: 12 lead EKG Comparison: Similar to previous EKG <Cal Person - Last Filed: 01/11/18 15:09> - Lab Interpretations Lab Results: 01/11/18 11:25 01/11/18 11:25 Lab Results 01/11/18 11:25: Sodium 139, Potassium 4.3, Chloride 106, Carbon Dioxide 26, [place]i on Gap 11, BUN 13, Creatinine 0.9, Est GFR ( Amer) > 60, Est GFR (Non-Af Amer) > 60, Random Glucose 85, Calcium 9.4, Magnesium 1.9, Total Bilirubin 0.7, AST 95 H D, ALT 76 H, Alkaline Phosphatase 59, Total Creatine Kinase 2064 H, CK- MB (CK-2) 11.0 H, CK-MB (CK-2) % 0.5 L, Troponin I < 0.01, NT-Pro-B Natriuret Pep 157, Total Protein 7.7, Albumin 3.8, Globulin 3.9, Albumin/Globulin Ratio 1.0 L 01/11/18 11:25: Urine Color Light yellow, Urine Appearance Clear, Urine pH 6.5, Ur Specific [place] <= 1.005, Urine Protein Negative, Urine Glucose (UA) Negative, Urine Ketones Negative, Urine Blood Large H, Urine Nitrate Negative, Urine Bilirubin Negative, Urine Urobilinogen 0.2, Ur Leukocyte Esterase Trace H, Urine RBC 20 - 25, Urine WBC 5 - 10, Ur Epithelial Cells 6 - 8, Urine Bacteria Many, Urine Other Uyeast 01/11/18 11:25: WBC 4.6, RBC 4.92, Hgb 13.1, Hct 40.9, MCV 83.1, MCH 26.6, MCHC 32.0, RDW 16.2 H, Plt Count 279, MPV 9.7, Gran % 42.4 L, Lymph % (Auto) 30.3, [place] % (Auto) 9.8 H, Eos % (Auto) 16.8 H, Baso % (Auto) 0.7, Gran # 1.95, Lymph # (Auto) 1.4, [place] # (Auto) 0.5, Eos # (Auto) 0.8 H, Baso # (Auto) 0.03 - RAD Interpretation Radiology Orders: 01/11/18 11:51 ANGIO CHEST PE PROTOCOL [CT] Stat - Medication Orders Current Medication Orders: Sodium Chloride (Sodium Chloride 0.9%) 1,000 mls @ 100 mls/hr IV .Q10H RAMY Last Admin: 01/11/18 14:17 Dose: 100 mls/hr eMAR Start Stop Document 01/11/18 14:17 GMD (Rec: 01/11/18 14:17 GMD [id number]) Intravenous Solution Start Date 01/11/18 Start Time 14:17 <Abdirahman Lombardo - Last Filed: 01/11/18 15:45> - PA / HAND WEAVER / Resident Statement / has examined the patient and agrees with the treatment plan. (Lupus flare vs rhabdo. No meningeal signs) <Abdirahman Lombardo - Last Filed: 01/11/18 15:45> Disposition/Present on Arrival - Present on Arrival Any Indicators Present on Arrival: No History of DVT/PE: No History of Uncontrolled Diabetes: No Urinary Catheter: No History of Decub. Ulcer: No History Surgical Site Infection Following: None - Disposition Have Diagnosis and Disposition been Completed?: Yes Disposition Time: 15:09 Patient Plan: Observation <Cal Person - Last Filed: 01/11/18 15:09> <Abdirahman Lombardo - Last Filed: 01/11/18 15:45> - Disposition Diagnosis: Exacerbation of systemic lupus erythematosus Disposition: HOSPITALIZED Patient Problems: Current Active Problems Problem Status Onset Exacerbation of systemic lupus erythematosus Acute Condition: GUARDED Referrals: Isabell Joya MD [Primary Care Provider] - Follow up with primary Forms: [email or web address] ([place])
[2018-01-11 12:36] LABS: PH,URINE 6.5 (4.7-8.0); URINE BILIRUBIN NEGATIVE (NEGATIVE); URINE BLOOD LARGE (NEGATIVE); URINE GLUCOSE (UA) NEGATIVE (NEGATIVE); URINE LEUKOCYTE ESTERASE TRACE Leu/uL (NEGATIVE); URINE PROTEIN NEGATIVE mg/dL (<30 mg/dL); URINE UROBILINOGEN 0.2 E.U./dL (<1 E.U./dL)
[2018-01-11 12:37] LABS: URINE APPEARANCE CLEAR (CLEAR); URINE COLOR LIGHT YELLOW (YELLOW)
[2018-01-11 12:39] LABS: ALBUMIN 3.8 g/dL (3.0-4.8); ALT/SGPT 76 U/L (7-56); AST/SGOT 95 U/L (14-36); BLOOD UREA NITROGEN 13 mg/dL (7-21); CALCIUM 9.4 mg/dL (8.4-10.5); GFR NON-AFRICAN AMERICAN > 60
[2018-01-11] MEDS ORDERED: Iohexol 350 MG/100 ML VIAL ONE (12:40)
[2018-01-11 12:42] LABS: URINE BACTERIA MANY (NEG); URINE RBC 20 - 25 /hpf (0-2)
[2018-01-11 12:47] LABS: BASO # 0.03 K/mm3 (0.0-2.0); BASO % 0.7 % (0.0-3.0); EOS # 0.8 (0.0-0.7); EOS % 16.8 % (1.5-5.0); GRAN # 1.95 (1.4-6.5); GRAN % 42.4 % (50.0-68.0); HEMOGLOBIN 13.1 g/dL (12.0-16.0); LYMPH # 1.4 (1.2-3.4); LYMPH % 30.3 % (22.0-35.0); MEAN CELL VOLUME 83.1 fl (80.0-105.0); MEAN CORPUSCULAR HEMOGLOBIN 26.6 pg (25.0-35.0); MEAN PLATELET VOLUME 9.7 fl (7.0-11.0); MONO # 0.5 (0.1-0.6); MONO % 9.8 % (1.0-6.0); RBC 4.92 10^6/uL (3.5-6.1); RED CELL DISTRIBUTION WIDTH 16.2 % (11.5-14.5); WHITE BLOOD COUNT 4.6 10^3/ul (4.5-11.0)
[2018-01-11 12:51] LABS: B-TYPE NATRIURETIC PEPTIDE 157 pg/mL (0-450); TROPONIN I < 0.01 ng/mL
[2018-01-11 13:13] LABS: CK MB% 0.5 % (2.5-3.0)
[2018-01-11] MEDS ORDERED: Sodium Chloride 0.9% 1,000 ML IV SCH (13:15)
--- NOTE | 2018-01-11 14:30 | CT ---
Date of service: 01/11/2018 PROCEDURE: CT Chest with contrast (Pulmonary Angiogram) HISTORY: MARIN COMPARISON: None available. TECHNIQUE: Axial computed tomography images were obtained of the chest in the pulmonary arterial phase of enhancement. Coronal and sagittal reformatted images were created and reviewed. Intravenous contrast dose: 100 cc of Omni 350 Radiation dose: Total exam DLP = 184 mGy-cm. This CT exam was performed using one or more of the following dose reduction techniques: Automated exposure control, adjustment of the mA and/or kV according to patient size, and/or use of iterative reconstruction technique. FINDINGS: PULMONARY ARTERIES: Unremarkable. No pulmonary embolism. AORTA: No acute findings. No thoracic aortic aneurysm. LUNGS: Unremarkable. No nodule, mass or pulmonary consolidation. PLEURAL SPACES: Unremarkable. No effusion or pneumothorax. HEART: Unremarkable. No cardiomegaly. No significant pericardial effusion. LYMPH NODES: No lymphadenopathy. BONES, CHEST WALL: Unremarkable. No fracture or destructive lesion OTHER FINDINGS: Unremarkable. IMPRESSION: Unremarkable CT pulmonary angiogram. No pulmonary embolus.
--- NOTE | 2018-01-11 15:11 | CARD ---
APPROVED REPORT Date of service: 01/11/2018 EKG Measurement Heart [id number] HI [id number] <Conclusion> Normal sinus rhythm Septal infarct, age undetermined Abnormal ECG
--- NOTE | 2018-01-11 15:59 | CP.PCM.HP ---
<Herlinda Handley - Last Filed: 01/11/18 16:16> History of Present Illness - History of Present Illness History of Present Illness: History and physical for Dr. James MENDOZA left arm heaviness, dizziness Patient is a 42 y/o F with PMH Lupus who presents with c/o heaviness and tingling in her left arm and hand since Sunday as well as mild dizziness this morning. She states that she had not eaten this morning and that today is the 5th day of her menstrual period. She denies ever falling, feeling unsteady on her feet or losing consciousness. She indicates that she feels much better and that her symptoms have resolved. She otherwise denies BOB, vision changes, SOB at rest, chest pain, abdominal pain, dysuria, frequency, urgency, extremity pain, current extremity weakness. Patient denies recent drug abuse, steroids, excessive exercise. PMH: lupus PSH: umbilical hernia repair Social: denies All: nkda Rheum: [place] Pharmacy: [facility] Present on Admission - Present on Admission Any Indicators Present on Admission: Yes Review of Systems - Review of Systems All systems: reviewed and no additional remarkable complaints except (as per HPI) Past Patient History - Infectious Disease Hx of Infectious Diseases: None - Past Social History Smoking Status: Never Smoked - CARDIAC Hx Hypertension: Yes - PULMONARY Hx Respiratory Disorders: No - NEUROLOGICAL Hx Neurological Disorder: No - HEENT Hx HEENT Problems: No - RENAL Hx Chronic Kidney Disease: No - ENDOCRINE/METABOLIC Hx Systemic Lupus Erythematosus: Yes - HEMATOLOGICAL/ONCOLOGICAL Hx Anemia: Yes - INTEGUMENTARY Hx Dermatological Problems: No - MUSCULOSKELETAL/RHEUMATOLOGICAL Hx Musculoskeletal Disorders: No Hx Falls: No - GASTROINTESTINAL Hx Gastrointestinal Disorders: No - GENITOURINARY/GYNECOLOGICAL Hx Genitourinary Disorders: No - PSYCHIATRIC Hx Psychophysiologic Disorder: No Hx Substance Use: No - SURGICAL HISTORY Hx Surgeries: No Meds Allergies/Adverse Reactions: Allergies Allergy/AdvReac Type Severity Reaction Status Date / Time No Known Allergies Allergy Verified 12/06/16 21:24 Physical Exam - Constitutional Appears: Well, Non-toxic, No Acute Distress - Head Exam Head Exam: ATRAUMATIC, NORMOCEPHALIC - Eye Exam Eye Exam: EOMI, PERRL. absent: Scleral icterus Pupil Exam: NORMAL ACCOMODATION, PERRL - ENT Exam ENT Exam: Mucous Membranes Moist - Respiratory Exam Respiratory Exam: Clear to Auscultation Bilateral, NORMAL BREATHING PATTERN - Cardiovascular Exam Cardiovascular Exam: REGULAR RHYTHM - GI/Abdominal Exam GI & Abdominal Exam: Soft. absent: Distended, Firm, Guarding, Rebound, Rigid, Tenderness - Extremities Exam Extremities exam: Positive for: pedal pulses present. Negative for: calf tenderness, normal capillary refill, pedal edema, tenderness Additional comments: capillary refill >2 sec - Back Exam Back exam: absent: CVA tenderness (L), CVA tenderness (R) - Neurological Exam Neurological exam: Alert, Oriented x3 Additional comments: strength 5/5 in all extremities bilaterally, no sensory deficits, no motor deficits - Psychiatric Exam Psychiatric exam: Normal Affect, Normal Mood - Skin Skin Exam: Dry, Normal Color, Warm Results - Vital Signs Recent Vital Signs: Last Vital Signs Temp 98.3 F 01/11/18 10:34 Pulse 76 01/11/18 12:17 Resp 18 01/11/18 12:17 BP 142/76 01/11/18 12:17 Pulse Ox 98 01/11/18 12:17 - Labs Result Diagrams: 01/11/18 11:25 01/11/18 11:25 Labs: Laboratory Results - last 24 hr 01/11/18 01/11/18 01/11/18 11:25 11:25 11:25 WBC 4.6 RBC 4.92 Hgb 13.1 Hct 40.9 MCV 83.1 MCH 26.6 MCHC 32.0 RDW 16.2 H Plt Count 279 MPV 9.7 Gran % 42.4 L Lymph % (Auto) 30.3 [place] % (Auto) 9.8 H Eos % (Auto) 16.8 H Baso % (Auto) 0.7 Gran # 1.95 Lymph # (Auto) 1.4 [place] # (Auto) 0.5 Eos # (Auto) 0.8 H Baso # (Auto) 0.03 Sodium 139 Potassium 4.3 Chloride 106 Carbon Dioxide 26 Anion Gap 11 BUN 13 Creatinine 0.9 Est GFR ( Amer) > 60 Est GFR (Non-Af Amer) > 60 Random Glucose 85 Calcium 9.4 Magnesium 1.9 Total Bilirubin 0.7 AST 95 H D ALT 76 H Alkaline Phosphatase 59 Total Creatine Kinase 2064 H CK-MB (CK-2) 11.0 H CK-MB (CK-2) % 0.5 L Troponin I < 0.01 NT-Pro-B Natriuret Pep 157 Total Protein 7.7 Albumin 3.8 Globulin 3.9 Albumin/Globulin Ratio 1.0 L Urine Color Light yellow Urine Appearance Clear Urine pH 6.5 Ur Specific [place] <= 1.005 Urine Protein Negative Urine Glucose (UA) Negative Urine Ketones Negative Urine Blood Large H Urine Nitrate Negative Urine Bilirubin Negative Urine Urobilinogen 0.2 Ur Leukocyte Esterase Trace H Urine RBC 20 - 25 Urine WBC 5 - 10 Ur Epithelial Cells 6 - 8 Urine Bacteria Many Urine Other Uyeast Assessment & Plan - Assessment and Plan (Free Text) Assessment: 2 year old female presents with Rhabdomyolysis and likely lupus flare Plan: Rhabdomyolysis * NS @ 150 mls/hr * repeat CK in AM * CT head * transaminitis likely d/t rhabdomyolysis will monitor for improvement PPX: protonix, heparin Patient seen and examined with Dr. James Handley, PGY 1 - Date & Time Date: 01/11/18 Time: 15:30 <Jett Ramirez - Last Filed: 01/12/18 07:48> Results - Vital Signs Recent Vital Signs: Last Vital Signs Temp 98.3 F 01/11/18 10:34 Pulse 70 01/11/18 20:07 Resp 18 01/11/18 20:58 BP 111/80 01/11/18 20:07 Pulse Ox 98 01/11/18 20:07 - Labs Result Diagrams: 01/12/18 06:30 01/11/18 11:25 Labs: Laboratory Results - last 24 hr 01/11/18 01/11/18 01/11/18 11:25 11:25 11:25 WBC 4.6 RBC 4.92 Hgb 13.1 Hct 40.9 MCV 83.1 MCH 26.6 MCHC 32.0 RDW 16.2 H Plt Count 279 MPV 9.7 Gran % 42.4 L Lymph % (Auto) 30.3 [place] % (Auto) 9.8 H Eos % (Auto) 16.8 H Baso % (Auto) 0.7 Gran # 1.95 Lymph # (Auto) 1.4 [place] # (Auto) 0.5 Eos # (Auto) 0.8 H Baso # (Auto) 0.03 Sodium 139 Potassium 4.3 Chloride 106 Carbon Dioxide 26 Anion Gap 11 BUN 13 Creatinine 0.9 Est GFR ( Amer) > 60 Est GFR (Non-Af Amer) > 60 Random Glucose 85 Calcium 9.4 Magnesium 1.9 Total Bilirubin 0.7 AST 95 H D ALT 76 H Alkaline Phosphatase 59 Lactate Dehydrogenase Total Creatine Kinase 2064 H CK-MB (CK-2) 11.0 H CK-MB (CK-2) % 0.5 L Troponin I < 0.01 NT-Pro-B Natriuret Pep 157 Total Protein 7.7 Albumin 3.8 Globulin 3.9 Albumin/Globulin Ratio 1.0 L Urine Color Light yellow Urine Appearance Clear Urine pH 6.5 Ur Specific [place] <= 1.005 Urine Protein Negative Urine Glucose (UA) Negative Urine Ketones Negative Urine Blood Large H Urine Nitrate Negative Urine Bilirubin Negative Urine Urobilinogen 0.2 Ur Leukocyte Esterase Trace H Urine RBC 20 - 25 Urine WBC 5 - 10 Ur Epithelial Cells 6 - 8 Urine Bacteria Many Urine Other Uyeast 01/11/18 01/12/18 21:31 06:30 WBC 5.5 RBC 4.53 Hgb 12.1 Hct 37.8 MCV 83.4 MCH 26.7 MCHC 32.0 RDW 16.4 H Plt Count 257 MPV 9.5 Gran % Lymph % (Auto) [place] % (Auto) Eos % (Auto) Baso % (Auto) Gran # Lymph # (Auto) [place] # (Auto) Eos # (Auto) Baso # (Auto) Sodium Potassium Chloride Carbon Dioxide Anion Gap BUN Creatinine Est GFR ( Amer) Est GFR (Non-Af Amer) Random Glucose Calcium Magnesium Total Bilirubin AST ALT Alkaline Phosphatase Lactate Dehydrogenase 709 H Total Creatine Kinase 1349 H CK-MB (CK-2) 8.5 H CK-MB (CK-2) % 0.6 L Troponin I < 0.01 NT-Pro-B Natriuret Pep Total Protein Albumin Globulin Albumin/Globulin Ratio Urine Color Urine Appearance Urine pH Ur Specific [place] Urine Protein Urine Glucose (UA) Urine Ketones Urine Blood Urine Nitrate Urine Bilirubin Urine Urobilinogen Ur Leukocyte Esterase Urine RBC Urine WBC Ur Epithelial Cells Urine Bacteria Urine Other Attending/Attestation - Attestation I have personally seen and examined this patient.: Yes I have fully participated in the care of the patient.: Yes I have reviewed all pertinent clinical information: Yes Notes (Text): 01/11/18 42 year old female with past medical history of SLE who presents with complaint of dizziness. Also complained of intermittent left arm heaviness and numbness/tingling for past 3 days. She was found to have rhabdomyolysis and transaminitis and started on iv fluids. Will obtain serial cardiac enzymes and CT head. Repeat CPK and LFTs in AM. Jett Ramirez MD Hospitalist.
[2018-01-11] MEDS: Sodium Chloride 0.9% 1,000 ML IV SCH ×2 (17:47→23:24)
--- NOTE | 2018-01-11 17:49 | CT ---
Date of service: 01/11/2018 PROCEDURE: CT HEAD WITHOUT CONTRAST. HISTORY: dizziness, near syncope COMPARISON: None available. TECHNIQUE: Axial computed tomography images were obtained through the head/brain without intravenous contrast. Supplemental Coronal and Sagittal projections created and reviewed. Radiation dose: Total exam DLP = 918.86 mGy-cm. This CT exam was performed using one or more of the following dose reduction techniques: Automated exposure control, adjustment of the mA and/or kV according to patient size, and/or use of iterative reconstruction technique. FINDINGS: HEMORRHAGE: No intracranial hemorrhage. BRAIN: No mass effect or edema. No atrophy or chronic microvascular ischemic changes. VENTRICLES: Unremarkable. No hydrocephalus. CALVARIUM: Unremarkable. PARANASAL SINUSES: Unremarkable as visualized. No significant inflammatory changes. MASTOID AIR CELLS: Unremarkable as visualized. No inflammatory changes. OTHER FINDINGS: None. IMPRESSION: No acute intracranial abnormalities. No significant findings to account for the clinical presentation.
[2018-01-11 22:37] LABS: TROPONIN I < 0.01 ng/mL
[2018-01-11 22:38] LABS: CK MB% 0.6 % (2.5-3.0); CK-MB 8.5 ng/mL (0.0-3.6)
[2018-01-12] MEDS: Sodium Chloride 0.9% 1,000 ML IV SCH ×2 (06:49→17:53)
[2018-01-12 07:41] LABS: HEMOGLOBIN 12.1 g/dL (12.0-16.0); MEAN CELL VOLUME 83.4 fl (80.0-105.0); MEAN CORPUSCULAR HEMOGLOBIN 26.7 pg (25.0-35.0); MEAN PLATELET VOLUME 9.5 fl (7.0-11.0); RBC 4.53 10^6/uL (3.5-6.1); RED CELL DISTRIBUTION WIDTH 16.4 % (11.5-14.5); WHITE BLOOD COUNT 5.5 10^3/ul (4.5-11.0)
[2018-01-12 08:17] LABS: ALB/GLOB RATIO 0.9 (1.1-1.8); ALBUMIN 3.3 g/dL (3.0-4.8); ALT/SGPT 60 U/L (7-56); AST/SGOT 90 U/L (14-36); BLOOD UREA NITROGEN 15 mg/dL (7-21); CALCIUM 8.4 mg/dL (8.4-10.5); GFR NON-AFRICAN AMERICAN > 60; TROPONIN I < 0.01 ng/mL
[2018-01-12 08:36] LABS: CK-MB 7.7 ng/mL (0.0-3.6)
[2018-01-12 08:37] LABS: CK MB% 0.7 % (2.5-3.0); CK-MB 9.8 ng/mL (0.0-3.6)
--- NOTE | 2018-01-12 15:01 | CP.PCM.DIS ---
Provider - Provider Date of Admission: 01/11/18 15:09 Attending physician: Jett Ramirez MD Primary care physician: Isabell Joya MD Time Spent in preparation of Discharge (in minutes): 45 Diagnosis - Discharge Diagnosis (1) Rhabdomyolysis Status: Acute Priority: Medium (2) History of lupus Status: Chronic Priority: Medium Hospital Course - Lab Results Lab Results: Most Recent Lab Values WBC 5.5 10^3/ul (4.5-11.0) 01/12/18 06:30 RBC 4.53 10^6/uL (3.5-6.1) 01/12/18 06:30 Hgb 12.1 g/dL (12.0-16.0) 01/12/18 06:30 Hct 37.8 % (36.0-48.0) 01/12/18 06:30 MCV 83.4 fl (80.0-105.0) 01/12/18 06:30 MCH 26.7 pg (25.0-35.0) 01/12/18 06:30 MCHC 32.0 g/dl (31.0-37.0) 01/12/18 06:30 RDW 16.4 % (11.5-14.5) H 01/12/18 06:30 Plt Count 257 10^3/uL (120.0-450.0) 01/12/18 06:30 MPV 9.5 fl (7.0-11.0) 01/12/18 06:30 Gran % 42.4 % (50.0-68.0) L 01/11/18 11:25 Lymph % (Auto) 30.3 % (22.0-35.0) 01/11/18 11:25 [place] % (Auto) 9.8 % (1.0-6.0) H 01/11/18 11:25 Eos % (Auto) 16.8 % (1.5-5.0) H 01/11/18 11:25 Baso % (Auto) 0.7 % (0.0-3.0) 01/11/18 11:25 Gran # 1.95 (1.4-6.5) 01/11/18 11:25 Lymph # (Auto) 1.4 (1.2-3.4) 01/11/18 11:25 [place] # (Auto) 0.5 (0.1-0.6) 01/11/18 11:25 Eos # (Auto) 0.8 (0.0-0.7) H 01/11/18 11:25 Baso # (Auto) 0.03 K/mm3 (0.0-2.0) 01/11/18 11:25 Sodium 139 mmol/L (132-148) 01/12/18 06:30 Potassium 4.4 mmol/L (3.6-5.0) 01/12/18 06:30 Chloride 110 mmol/L (98-107) H 01/12/18 06:30 Carbon Dioxide 25 mmol/L (21-33) 01/12/18 06:30 Anion Gap 10 (10-20) 01/12/18 06:30 BUN 15 mg/dL (7-21) 01/12/18 06:30 Creatinine 0.9 mg/dl (0.7-1.2) 01/12/18 06:30 Est GFR ( Amer) > 60 01/12/18 06:30 Est GFR (Non-Af Amer) > 60 01/12/18 06:30 Random Glucose 81 mg/dL (70-110) 01/12/18 06:30 Calcium 8.4 mg/dL (8.4-10.5) 01/12/18 06:30 Phosphorus 4.5 mg/dL (2.5-4.5) 01/12/18 06:30 Magnesium 1.8 mg/dL (1.7-2.2) 01/12/18 06:30 Total Bilirubin 0.4 mg/dL (0.2-1.3) 01/12/18 06:30 AST 90 U/L (14-36) H 01/12/18 06:30 ALT 60 U/L (7-56) H 01/12/18 06:30 Alkaline Phosphatase 54 U/L (38-126) 01/12/18 06:30 Lactate Dehydrogenase 776 U/L (333-699) H 01/12/18 06:30 Total Creatine Kinase 1351 U/L (35-230) H 01/12/18 06:30 CK-MB (CK-2) 9.8 ng/mL (0.0-3.6) H 01/12/18 06:30 CK-MB (CK-2) % 0.7 % (2.5-3.0) L 01/12/18 06:30 Troponin I < 0.01 ng/mL 01/12/18 06:30 NT-Pro-B Natriuret Pep 157 pg/mL (0-450) 01/11/18 11:25 Total Protein 6.8 g/dL (5.8-8.3) 01/12/18 06:30 Albumin 3.3 g/dL (3.0-4.8) 01/12/18 06:30 Globulin 3.6 gm/dL 01/12/18 06:30 Albumin/Globulin Ratio 0.9 (1.1-1.8) L 01/12/18 06:30 Urine Color Light yellow (YELLOW) 01/11/18 11:25 Urine Appearance Clear (CLEAR) 01/11/18 11:25 Urine pH 6.5 (4.7-8.0) 01/11/18 11:25 Ur Specific [place] <= 1.005 (1.005-1.035) 01/11/18 11:25 Urine Protein Negative mg/dL (<30 mg/dL) 01/11/18 11:25 Urine Glucose (UA) Negative mg/dL (NEGATIVE) 01/11/18 11:25 Urine Ketones Negative mg/dL (NEGATIVE) 01/11/18 11:25 Urine Blood Large (NEGATIVE) H 01/11/18 11:25 Urine Nitrate Negative (NEGATIVE) 01/11/18 11:25 Urine Bilirubin Negative (NEGATIVE) 01/11/18 11:25 Urine Urobilinogen 0.2 E.U./dL (<1 E.U./dL) 01/11/18 11:25 Ur Leukocyte Esterase Trace Fernanda/uL (NEGATIVE) H 01/11/18 11:25 Urine RBC 20 - 25 /hpf (0-2) 01/11/18 11:25 Urine WBC 5 - 10 /hpf (0-6) 01/11/18 11:25 Ur Epithelial Cells 6 - 8 /hpf (0-5) 01/11/18 11:25 Urine Bacteria Many (NEG) 01/11/18 11:25 Urine Other Uyeast 01/11/18 11:25 - Hospital Course Hospital Course: Patient is a 42 year old female with a past medical history of lupus who was admitted for evaluation and treatment of heaviness and tingling in her left arm and hand and dizziness. With the use of physical examinations, lab work, and imaging the patient was diagnosed with and treated for rhabomylosis. During their hospital stay the patient underwent a head CT, chest CT angiogram, and EKG which were reviewed, appreciated, and utilized in the management of the patients clinical course. The head CT showed no acute intracranial abnormalities. The CT angiogram showed no pulmonary embolus. EKG was NSR HR 68 bpm, QTc 399. Patient was treated with intravenous fluids and her CPK decreased appropriately. At this time the patient is medically stable for discharge. Patient understands and appreciates discharge plan. Patient instructed to follow up with primary care physicians and referrals within three to five days from discharge. Furthermore, the patient is instructed to take medications as prescribed and to return to emergency room for evaluation of intractable headache, fever, chills, dizziness, chest pain, shortness of breath, abdominal pain, nausea, vomiting, diarrhea, constipation, and urinary symptoms. This is a brief summary of the patients hospital course. Please see patient chart for full details. Discharge Exam - Additional Findings Additional findings: - Constitutional Appears: Well, Non-toxic, No Acute Distress - Head Exam Head Exam: ATRAUMATIC, NORMOCEPHALIC - Eye Exam Eye Exam: EOMI, absent: Scleral icterus - ENT Exam ENT Exam: Mucous Membranes Moist - Respiratory Exam Respiratory Exam: Clear to Auscultation Bilateral, NORMAL BREATHING PATTERN - Cardiovascular Exam Cardiovascular Exam: REGULAR RHYTHM - GI/Abdominal Exam GI & Abdominal Exam: Soft. absent: Distended, Firm, Guarding, Rebound, Rigid, Tenderness - Extremities Exam Extremities exam: Positive for: pedal pulses present. Negative for: calf tenderness, normal capillary refill, pedal edema, tenderness Additional comments: capillary refill >2 sec - Back Exam Back exam: absent: CVA tenderness (L), CVA tenderness (R) - Neurological Exam Neurological exam: , Patient is awake, alert, oriented x 3, responds to verbal stimuli, answers questions appropriately, follows commands, and moves extremities past midline - Psychiatric Exam Psychiatric exam: Normal Affect, Normal Mood - Skin Skin Exam: Dry, Normal Color, Warm Discharge Plan - Follow Up Plan Condition: GUARDED Disposition: HOME/ ROUTINE Additional Instructions: Patient Instructions: 1. Follow up with your primary care physician, Dr. Joya, within three to five days from discharge. 2. Avoid extraneous exercise until seen by primary care physician. Continue adequate water intake (6-8, 12floz glasses of water) 3. Return to the emergency room for evaluation of intractable headache, fever, chills, dizziness, chest pain, shortness of breath, abdominal pain, nausea, vomiting, diarrhea, constipation, and urinary symptoms. Referrals: Isabell Joya MD [Primary Care Provider] -
[2018-01-12 15:56] LABS: CK MB% 0.6 % (2.5-3.0); CK-MB 9.8 ng/mL (0.0-3.6)
[2018-01-12 20:46] LABS: CK MB% 0.7 % (2.5-3.0); CK-MB 10.4 ng/mL (0.0-3.6)
--- NOTE | 2018-01-12 21:46 | CP.PCM.PN ---
<Taj Mayo - Last Filed: 01/12/18 21:46> Subjective - Date & Time of Evaluation Date of Evaluation: 01/12/18 Time of Evaluation: 11:00 - Subjective Subjective: Taj Mayo Internal Medicine Resident- Consult Note On Behalf of Hospitalist Team Patient seen and examined at bedside. Resting comfortably in bed. No acute overnight events. Patient states left arm discomfort and dizziness have resolved. Offers no new complaints at this time. Denies fever, chills, chest pain, shortness of breath, abdominal pain, nausea, vomiting, diarrhea, constipation, and urinary symptoms. 12-point review of systems negative except as indicated in the HPI Physical Examination: - Constitutional Appears: Well, Non-toxic, No Acute Distress - Head Exam Head Exam: ATRAUMATIC, NORMOCEPHALIC - Eye Exam Eye Exam: EOMI - ENT Exam ENT Exam: Mucous Membranes Moist - Respiratory Exam Respiratory Exam: Clear to Auscultation Bilateral, NORMAL BREATHING PATTERN - Cardiovascular Exam Cardiovascular Exam: REGULAR RHYTHM - GI/Abdominal Exam GI & Abdominal Exam: Soft. absent: Distended, Firm, Guarding, Rebound, Rigid, Tenderness - Extremities Exam Extremities exam: Positive for: pedal pulses present. Negative for: calf tenderness, normal capillary refill, pedal edema, tenderness - Back Exam Back exam: absent: CVA tenderness (L), CVA tenderness (R) - Neurological Exam Neurological exam: Patient is awake, alert, responds to verbal stimuli, answers questions appropriately, follows commands, and moves extremities past midline - Psychiatric Exam Psychiatric exam: Normal Affect, Normal Mood - Skin Skin Exam: Dry, Normal Color, Warm Assessment and Plan: Patient is a 42 year old female who was admitted for evaluation and treatment of rhabdomyolysis. Rhabdomyolysis - CT head without contrast reviewed and appreciated- No acute intracranial abnormalities - Chest CT with contrast reviewed and appreciated- Unremarkable CT pulmonary angiogram. No pulmonary embolus - Increased IVF NS from 150 to 200 mls/hr as CPK has increased throughout the day ending at ~1583 - repeat CK in AM Elevated LFTs - likely 2/2 rhabdomyolysis - trending down AST/ALT ~90/60 - monitor closely via CMP Prophylaxis: - GI- tolerating diet, no indication - DVT- ambulating without overt difficulty Patient seen, case discussed with, and plan approved by attending physician, Dr. Ramirez. Objective - Vital Signs/Intake and Output Vital Signs (last 24 hours): Temp Pulse Resp BP Pulse Ox 98.2 F 81 20 98/62 L 100 01/12/18 14:00 01/12/18 14:00 01/12/18 14:00 01/12/18 14:00 01/12/18 14:00 Intake and Output: 01/12/18 01/13/18 18:59 06:59 Intake Total 800 Balance 800 - Medications Medications: Current Medications Sodium Chloride (Sodium Chloride 0.9%) 1,000 mls @ 200 mls/hr IV .Q5H [facility] Last Admin: 01/12/18 17:53 Dose: 200 mls/hr - Labs Labs: 01/12/18 06:30 01/12/18 06:30 Assessment and Plan (1) Rhabdomyolysis Status: Acute (2) History of lupus Status: Chronic <Jett Ramirez - Last Filed: 01/13/18 08:20> Objective - Vital Signs/Intake and Output Vital Signs (last 24 hours): Temp Pulse Resp BP Pulse Ox 98 F 68 18 91/52 L 98 01/13/18 07:46 01/13/18 07:46 01/13/18 07:46 01/13/18 07:46 01/13/18 07:46 Intake and Output: 01/13/18 01/13/18 06:59 18:59 Intake Total 1160 Balance 1160 - Medications Medications: Current Medications Sodium Chloride (Sodium Chloride 0.9%) 1,000 mls @ 200 mls/hr IV .Q5H [facility] Last Admin: 01/12/18 17:53 Dose: 200 mls/hr - Labs Labs: 01/12/18 06:30 01/12/18 06:30 Attending/Attestation - Attestation I have personally seen and examined this patient.: Yes I have fully participated in the care of the patient.: Yes I have reviewed all pertinent clinical information, including history, physical exam and plan: Yes Notes (Text): 01/12/18 42 year old female with past medical history of SLE who presented with complaint of dizziness. Also complained of intermittent left arm heaviness and numbness/tingling for past 3 days which has resolved. CT head and CT chest were negative. Serial cardiac enzymes also negative. She was found to have rhabdomyolysis and transaminitis and started on iv fluids. CPK is slowly improving. IVF rate was increased. LFTs are stable. Possible d/c planning tomorrow if CPK continues to improve. Jett Ramirez MD Hospitalist.
[2018-01-13 07:47] VITALS: BP 91/52; PULSE 68; RESP 18; TEMP 98; O2SAT 98
[2018-01-13 09:19] LABS: ALB/GLOB RATIO 0.9 (1.1-1.8); ALBUMIN 2.8 g/dL (3.0-4.8); ALT/SGPT 61 U/L (7-56); AST/SGOT 75 U/L (14-36); BLOOD UREA NITROGEN 13 mg/dL (7-21); CALCIUM 7.7 mg/dL (8.4-10.5); GFR NON-AFRICAN AMERICAN > 60
[2018-01-13 09:36] LABS: CK MB% 0.5 % (2.5-3.0); CK-MB 7.5 ng/mL (0.0-3.6)
[2018-01-13] MEDS: Sodium Chloride 0.9% 1,000 ML IV SCH (09:58)
--- NOTE | 2018-01-13 12:26 | CP.PCM.DIS ---
<Arnaldo Willard - Last Filed: 01/13/18 12:24> Provider - Provider Date of Admission: 01/11/18 15:09 Attending physician: Jett Ramirez MD Primary care physician: Isabell Joya MD Time Spent in preparation of Discharge (in minutes): 37 Diagnosis - Discharge Diagnosis (1) Rhabdomyolysis Status: Resolved Priority: Medium (2) History of lupus Status: Chronic Priority: Medium Hospital Course - Lab Results Lab Results: Micro Results 01/11/18 16:08 Urine,Clean Catch Urine Culture - Final No Growth (<1,000 CFU/ML) Most Recent Lab Values WBC 5.5 10^3/ul (4.5-11.0) 01/12/18 06:30 RBC 4.53 10^6/uL (3.5-6.1) 01/12/18 06:30 Hgb 12.1 g/dL (12.0-16.0) 01/12/18 06:30 Hct 37.8 % (36.0-48.0) 01/12/18 06:30 MCV 83.4 fl (80.0-105.0) 01/12/18 06:30 MCH 26.7 pg (25.0-35.0) 01/12/18 06:30 MCHC 32.0 g/dl (31.0-37.0) 01/12/18 06:30 RDW 16.4 % (11.5-14.5) H 01/12/18 06:30 Plt Count 257 10^3/uL (120.0-450.0) 01/12/18 06:30 MPV 9.5 fl (7.0-11.0) 01/12/18 06:30 Gran % 42.4 % (50.0-68.0) L 01/11/18 11:25 Lymph % (Auto) 30.3 % (22.0-35.0) 01/11/18 11:25 [place] % (Auto) 9.8 % (1.0-6.0) H 01/11/18 11:25 Eos % (Auto) 16.8 % (1.5-5.0) H 01/11/18 11:25 Baso % (Auto) 0.7 % (0.0-3.0) 01/11/18 11:25 Gran # 1.95 (1.4-6.5) 01/11/18 11:25 Lymph # (Auto) 1.4 (1.2-3.4) 01/11/18 11:25 [place] # (Auto) 0.5 (0.1-0.6) 01/11/18 11:25 Eos # (Auto) 0.8 (0.0-0.7) H 01/11/18 11:25 Baso # (Auto) 0.03 K/mm3 (0.0-2.0) 01/11/18 11:25 Sodium 139 mmol/L (132-148) 01/13/18 09:00 Potassium 3.6 mmol/L (3.6-5.0) 01/13/18 09:00 Chloride 113 mmol/L (98-107) H 01/13/18 09:00 Carbon Dioxide 22 mmol/L (21-33) 01/13/18 09:00 Anion Gap 7 (10-20) L 01/13/18 09:00 BUN 13 mg/dL (7-21) 01/13/18 09:00 Creatinine 0.8 mg/dl (0.7-1.2) 01/13/18 09:00 Est GFR ( Amer) > 60 01/13/18 09:00 Est GFR (Non-Af Amer) > 60 01/13/18 09:00 Random Glucose 75 mg/dL (70-110) 01/13/18 09:00 Calcium 7.7 mg/dL (8.4-10.5) L 01/13/18 09:00 Phosphorus 4.5 mg/dL (2.5-4.5) 01/12/18 06:30 Magnesium 1.8 mg/dL (1.7-2.2) 01/12/18 06:30 Total Bilirubin 0.3 mg/dL (0.2-1.3) 01/13/18 09:00 AST 75 U/L (14-36) H 01/13/18 09:00 ALT 61 U/L (7-56) H 01/13/18 09:00 Alkaline Phosphatase 49 U/L (38-126) 01/13/18 09:00 Lactate Dehydrogenase 776 U/L (333-699) H 01/12/18 06:30 Total Creatine Kinase 1448 U/L (35-230) H 01/13/18 09:00 CK-MB (CK-2) 7.5 ng/mL (0.0-3.6) H 01/13/18 09:00 CK-MB (CK-2) % 0.5 % (2.5-3.0) L 01/13/18 09:00 Troponin I < 0.01 ng/mL 01/12/18 06:30 NT-Pro-B Natriuret Pep 157 pg/mL (0-450) 01/11/18 11:25 Total Protein 6.0 g/dL (5.8-8.3) 01/13/18 09:00 Albumin 2.8 g/dL (3.0-4.8) L 01/13/18 09:00 Globulin 3.2 gm/dL 01/13/18 09:00 Albumin/Globulin Ratio 0.9 (1.1-1.8) L 01/13/18 09:00 Urine Color Light yellow (YELLOW) 01/11/18 11:25 Urine Appearance Clear (CLEAR) 01/11/18 11:25 Urine pH 6.5 (4.7-8.0) 01/11/18 11:25 Ur Specific [place] <= 1.005 (1.005-1.035) 01/11/18 11:25 Urine Protein Negative mg/dL (<30 mg/dL) 01/11/18 11:25 Urine Glucose (UA) Negative mg/dL (NEGATIVE) 01/11/18 11:25 Urine Ketones Negative mg/dL (NEGATIVE) 01/11/18 11:25 Urine Blood Large (NEGATIVE) H 01/11/18 11:25 Urine Nitrate Negative (NEGATIVE) 01/11/18 11:25 Urine Bilirubin Negative (NEGATIVE) 01/11/18 11:25 Urine Urobilinogen 0.2 E.U./dL (<1 E.U./dL) 01/11/18 11:25 Ur Leukocyte Esterase Trace Fernanda/uL (NEGATIVE) H 01/11/18 11:25 Urine RBC 20 - 25 /hpf (0-2) 01/11/18 11:25 Urine WBC 5 - 10 /hpf (0-6) 01/11/18 11:25 Ur Epithelial Cells 6 - 8 /hpf (0-5) 01/11/18 11:25 Urine Bacteria Many (NEG) 01/11/18 11:25 Urine Other Uyeast 01/11/18 11:25 - Hospital Course Hospital Course: History and physical for Dr. James MENDOZA left arm heaviness, dizziness Patient is a 42 y/o F with PMH Lupus who presents with c/o heaviness and tingling in her left arm and hand since Sunday as well as mild dizziness this morning. She states that she had not eaten this morning and that today is the 5th day of her menstrual period. She denies ever falling, feeling unsteady on her feet or losing consciousness. She indicates that she feels much better and that her symptoms have resolved. She otherwise denies BOB, vision changes, SOB at rest, chest pain, abdominal pain, dysuria, frequency, urgency, extremity pain, current extremity weakness. Patient denies recent drug abuse, steroids, excessive exercise. PMH: lupus PSH: umbilical hernia repair Social: denies All: nkda Rheum: [place] Pharmacy: [facility] COURSE: Patient is a 42 year old female with a past medical history of lupus who was admitted for evaluation and treatment of heaviness and tingling in her left arm and hand and dizziness. With the use of physical examinations, lab work, and imaging the patient was diagnosed with and treated for rhabomylosis. During their hospital stay the patient underwent a head CT, chest CT angiogram, and EKG which were reviewed, appreciated, and utilized in the management of the patients clinical course. The head CT showed no acute intracranial abnormalities. The CT angiogram showed no pulmonary embolus. EKG was NSR HR 68 bpm, QTc 399. Patient was treated with intravenous fluids and her CPK decreased appropriately. At this time the patient is medically stable for discharge. Patient understands and appreciates discharge plan. Patient instructed to follow up with primary care physicians and referrals within three to five days from discharge. Furthermore, the patient is instructed to take medications as prescribed and to return to emergency room for evaluation of intractable headache, fever, chills, dizziness, chest pain, shortness of breath, abdominal pain, nausea, vomiting, diarrhea, constipation, and urinary symptoms. This is a brief summary of the patients hospital course. Please see patient chart for full details. Discharge Exam - Head Exam Head Exam: ATRAUMATIC, NORMOCEPHALIC - Additional Findings Additional findings: - Constitutional Appears: Well, Non-toxic, No Acute Distress - Head Exam Head Exam: ATRAUMATIC, NORMOCEPHALIC - Eye Exam Eye Exam: EOMI, absent: Scleral icterus - ENT Exam ENT Exam: Mucous Membranes Moist - Respiratory Exam Respiratory Exam: Clear to Auscultation Bilateral, NORMAL BREATHING PATTERN - Cardiovascular Exam Cardiovascular Exam: REGULAR RHYTHM - GI/Abdominal Exam GI & Abdominal Exam: Soft. absent: Distended, Firm, Guarding, Rebound, Rigid, T enderness - Extremities Exam Extremities exam: Positive for: pedal pulses present. Negative for: calf tenderness, normal capillary refill, pedal edema, tenderness Additional comments: capillary refill <3 sec - Back Exam Back exam: absent: CVA tenderness (L), CVA tenderness (R) - Neurological Exam Neurological exam: , Patient is awake, alert, oriented x 3, responds to verbal stimuli, answers questions appropriately, follows commands, and moves extremit ies past midline - Psychiatric Exam Psychiatric exam: Normal Affect, Normal Mood - Skin Skin Exam: Dry, Normal Color, Warm Discharge Plan - Follow Up Plan Condition: FAIR Disposition: HOME/ ROUTINE Instructions: Rhabdomyolysis, Lupus, Flu, Smoking: Not Just Harmful to Your Lungs and Heart, Dangers of Secondhand Smoke, Nutrition Support, Flu Vaccine Additional Instructions: Patient Instructions: 1. Follow up with your primary care physician, Dr. Joya, within three to five days from discharge. 2. Avoid extraneous exercise until seen by primary care physician. Continue adequate water intake (6-8, 12floz glasses of water) 3. Return to the emergency room for evaluation of intractable headache, fever, chills, dizziness, chest pain, shortness of breath, abdominal pain, nausea, vomiting, diarrhea, constipation, and urinary symptoms. Referrals: Isabell Joya MD [Primary Care Provider] - <Jett Ramirez - Last Filed: 01/13/18 13:43> Provider - Provider Date of Admission: 01/11/18 15:09 Attending physician: Jett Ramirez MD Primary care physician: Isabell Joya MD Hospital Course - Lab Results Lab Results: Micro Results 01/11/18 16:08 Urine,Clean Catch Urine Culture - Final No Growth (<1,000 CFU/ML) Most Recent Lab Values WBC 5.5 10^3/ul (4.5-11.0) 01/12/18 06:30 RBC 4.53 10^6/uL (3.5-6.1) 01/12/18 06:30 Hgb 12.1 g/dL (12.0-16.0) 01/12/18 06:30 Hct 37.8 % (36.0-48.0) 01/12/18 06:30 MCV 83.4 fl (80.0-105.0) 01/12/18 06:30 MCH 26.7 pg (25.0-35.0) 01/12/18 06:30 MCHC 32.0 g/dl (31.0-37.0) 01/12/18 06:30 RDW 16.4 % (11.5-14.5) H 01/12/18 06:30 Plt Count 257 10^3/uL (120.0-450.0) 01/12/18 06:30 MPV 9.5 fl (7.0-11.0) 01/12/18 06:30 Gran % 42.4 % (50.0-68.0) L 01/11/18 11:25 Lymph % (Auto) 30.3 % (22.0-35.0) 01/11/18 11:25 [place] % (Auto) 9.8 % (1.0-6.0) H 01/11/18 11:25 Eos % (Auto) 16.8 % (1.5-5.0) H 01/11/18 11:25 Baso % (Auto) 0.7 % (0.0-3.0) 01/11/18 11:25 Gran # 1.95 (1.4-6.5) 01/11/18 11:25 Lymph # (Auto) 1.4 (1.2-3.4) 01/11/18 11:25 [place] # (Auto) 0.5 (0.1-0.6) 01/11/18 11:25 Eos # (Auto) 0.8 (0.0-0.7) H 01/11/18 11:25 Baso # (Auto) 0.03 K/mm3 (0.0-2.0) 01/11/18 11:25 Sodium 139 mmol/L (132-148) 01/13/18 09:00 Potassium 3.6 mmol/L (3.6-5.0) 01/13/18 09:00 Chloride 113 mmol/L (98-107) H 01/13/18 09:00 Carbon Dioxide 22 mmol/L (21-33) 01/13/18 09:00 Anion Gap 7 (10-20) L 01/13/18 09:00 BUN 13 mg/dL (7-21) 01/13/18 09:00 Creatinine 0.8 mg/dl (0.7-1.2) 01/13/18 09:00 Est GFR ( Amer) > 60 01/13/18 09:00 Est GFR (Non-Af Amer) > 60 01/13/18 09:00 Random Glucose 75 mg/dL (70-110) 01/13/18 09:00 Calcium 7.7 mg/dL (8.4-10.5) L 01/13/18 09:00 Phosphorus 4.5 mg/dL (2.5-4.5) 01/12/18 06:30 Magnesium 1.8 mg/dL (1.7-2.2) 01/12/18 06:30 Total Bilirubin 0.3 mg/dL (0.2-1.3) 01/13/18 09:00 AST 75 U/L (14-36) H 01/13/18 09:00 ALT 61 U/L (7-56) H 01/13/18 09:00 Alkaline Phosphatase 49 U/L (38-126) 01/13/18 09:00 Lactate Dehydrogenase 776 U/L (333-699) H 01/12/18 06:30 Total Creatine Kinase 1448 U/L (35-230) H 01/13/18 09:00 CK-MB (CK-2) 7.5 ng/mL (0.0-3.6) H 01/13/18 09:00 CK-MB (CK-2) % 0.5 % (2.5-3.0) L 01/13/18 09:00 Troponin I < 0.01 ng/mL 01/12/18 06:30 NT-Pro-B Natriuret Pep 157 pg/mL (0-450) 01/11/18 11:25 Total Protein 6.0 g/dL (5.8-8.3) 01/13/18 09:00 Albumin 2.8 g/dL (3.0-4.8) L 01/13/18 09:00 Globulin 3.2 gm/dL 01/13/18 09:00 Albumin/Globulin Ratio 0.9 (1.1-1.8) L 01/13/18 09:00 Urine Color Light yellow (YELLOW) 01/11/18 11:25 Urine Appearance Clear (CLEAR) 01/11/18 11:25 Urine pH 6.5 (4.7-8.0) 01/11/18 11:25 Ur Specific [place] <= 1.005 (1.005-1.035) 01/11/18 11:25 Urine Protein Negative mg/dL (<30 mg/dL) 01/11/18 11:25 Urine Glucose (UA) Negative mg/dL (NEGATIVE) 01/11/18 11:25 Urine Ketones Negative mg/dL (NEGATIVE) 01/11/18 11:25 Urine Blood Large (NEGATIVE) H 01/11/18 11:25 Urine Nitrate Negative (NEGATIVE) 01/11/18 11:25 Urine Bilirubin Negative (NEGATIVE) 01/11/18 11:25 Urine Urobilinogen 0.2 E.U./dL (<1 E.U./dL) 01/11/18 11:25 Ur Leukocyte Esterase Trace Fernanda/uL (NEGATIVE) H 01/11/18 11:25 Urine RBC 20 - 25 /hpf (0-2) 01/11/18 11:25 Urine WBC 5 - 10 /hpf (0-6) 01/11/18 11:25 Ur Epithelial Cells 6 - 8 /hpf (0-5) 01/11/18 11:25 Urine Bacteria Many (NEG) 01/11/18 11:25 Urine Other Uyeast 01/11/18 11:25 Attending/Attestation - Attestation I have personally seen and examined this patient.: Yes I have fully participated in the care of the patient.: Yes I have reviewed all pertinent clinical information, including history, physical exam and plan: Yes Notes (Text): 01/13/18 13:42 42 year old female with past medical history of SLE who presented with complaint of dizziness. Also complained of intermittent left arm heaviness and numbness/tingling for past 3 days which has resolved. CT head and CT chest were negative. Serial cardiac enzymes also negative. She was found to have rhabdomyolysis and transaminitis and started on iv fluids. CPK slowly improved over 36 hours. LFTs were also stable. Patient is discharged home to follow up with her pmd and neurologist. Recommended increased oral hydration and avoiding strenuous active over next few days. Jett Ramirez MD Hospitalist.
== END 2018-01-13 15:41 | disposition home or self-care (01) ==
LOC: ED 10:16 → ERH 15:09 → 5RSO 20:36
PROVIDERS: ADMIT Hospitalist; ATTEND Internal Medicine
DX: M62.82 Rhabdomyolysis (principal); M32.9 Systemic lupus erythematosus, unspecified; I10 Essential (primary) hypertension; Z91.19 Patient's noncompliance with other medical treatment and regimen
CPT/HCPCS: 36415; 70450; 71275; 80053; 81001; 82550; 82553; 83615; 83735; 83880; 84100; 84484; 85025; 85027; 87086; 93005; 99285; G0378; J7030; Q9967